=== PATIENT | female | born 1930 | race Caucasian/White ===

== ENCOUNTER 2017-12-23 20:24 | Inpatient (IN) ==
[2017-12-23] MEDS ORDERED: Naloxone 0.4 MG/ML INJ IVP PRN (22:52)
--- NOTE | 2017-12-23 22:58 | Internal Med History&Physical ---
Date of Encounter: 12/23/17 Time of Encounter: 22:56 Internal Medicine - H&P: HPI Chief complaint: Chills rigors fever History of present illness: Ms. Stone is a 86 year old female who presents with acute onset Chills rigors fever. Admitted for UTI therapy Patient lives at home alone and uses a walker at baseline. This past Wednesday while attempting to let her dog out she had mechanical fall when she tried to grab her tried to grab her dog's tail to stop it from rushing out. She sustained trauma to her head and low back that was investigated in the ER with trauma imaging. She was sent home and did well until today when she had a temperature of 100.4 Fahrenheit that was associated with chills and rigors. She presented to the ED at [facility] and was found to have UTI. On review she denies any overt dysuria but complain of chronic urinary frequency but appears unchanged. Routine labs also found to have a mild troponin elevation but without symptoms of chest pain or EKG changes to suggest ischemia. On review, she has a history of DVT and had been on Coumadin until last May where she was switched to Eliquis. At around this time she was also noted to be anemic needing blood transfusion at [facility] approximately every 3 months since May 2017 while under the care of Dr. Shamir Terrazas. She had never been given explanation why she needed blood transfusion or why she is anemic. She was since placed on oral iron which causes stools to be dark. She denies any bright red blood TN. She did not used to have dark stool prior. EKG personally reviewed with rate 80, normal sinus rhythm, left anterior fascicular block CT/CT head/brain wo con IMPRESSION: No acute intracranial abnormality. XR/XR chest 1V portable IMPRESSION: Cardiomegaly with findings suggesting pulmonary edema. XR/XR ribs RT w PA CXR IMPRESSION: 1. No radiographic finding to account for patient's chest wall pain. Please note that nondisplaced rib fractures can be occult. 2. Emphysema. No superimposed acute pulmonary abnormality. XR/XR thoracic spine 2V IMPRESSION: 1. No acute thoracic spine abnormality identified. 2. Moderate degenerative changes throughout the thoracic spine. Past Med Surg Social Fam HX - Past Medical History Medical history: cancer, DVT, diabetes, GERD, hyperlipidemia, hypertension, kidney stones, thyroid disease, other Additional medical history: hiatal hernia Psychiatric history: anxiety, depression - Past Surgical History Surgical History: appendectomy, cataract, hysterectomy, knee replacement, thyroidectomy, other Additional surgical history: bi-lat knee replacement. Exploratory kidney surgery - Social History Smoking Status: Never smoker Smokeless Tobacco Status: No Alcohol use: none Drug use: none Internal Medicine - H&P: Meds Diltiazem CD (24hr) [Cardizem CD] 180 mg PO DAILY 02/26/15 [History] Simvastatin [Zocor] 40 mg PO HS 02/26/15 [History] Furosemide [Lasix] 20 mg PO DAILY 05/02/15 [History] Cholecalciferol (D-3) [Vitamin D] 1,000 unit PO DAILY 05/30/17 [History] Gabapentin [Neurontin] 800 mg PO TID 05/30/17 [History] Levothyroxine [Synthroid] 75 mcg PO DAILY 05/30/17 [History] Pioglitazone [Actos] 30 mg PO 0800 05/31/17 [History] Potassium Chloride 10 meq PO DAILY #30 tab.er.prt 06/01/17 [Rx] Apixaban [Eliquis] 2.5 mg PO BID 06/08/17 [History] Ascorbic Acid [C-500] 500 mg PO DAILY #30 tablet 09/12/17 [Rx] Ferrous Sulfate 325 mg PO DAILY #30 tablet 09/12/17 [Rx] Omeprazole [PriLOSEC] 40 mg PO DAILY 11/28/17 [History] 3 Allergy/AdvReac Type Severity Reaction Status Date / Time clarithromycin [From Biaxin] Allergy Hives Verified 12/23/17 16:56 Iodinated Contrast- Oral and Allergy Hives Verified 12/23/17 16:56 IV Dye [Iodinated Contrast Media - IV Dye] metoclopramide Allergy Difficulty Verified 12/23/17 16:56 Breathing Penicillins Allergy Hives Verified 12/23/17 16:56 phenazopyridine Allergy Rash Verified 12/23/17 16:56 [From Pyridium] Sulfa (Sulfonamide Allergy See Verified 12/23/17 16:56 Antibiotics) Comments sulfamethoxazole Allergy Hives Verified 12/23/17 16:56 [From Bactrim] trimethoprim [From Bactrim] Allergy Hives Verified 12/23/17 16:56 All Systems PM: A 10-system review of systems was performed and is negative for pertinent findings except as documented above in the HPI. Review of systems: ROS 14 point review of systems reviewed as best as possible given presentation. Pertinent positive or negative as per HPI or otherwise reviewed as negative - Constitutional Exam: General - AAO x 3 Psych - Appropriate affect/speech. No agitation Eyes - SATHYA. Eye lids intact. No scleral icterus Neuro - No gross peripheral or central neuro deficits on inspection Heart - Sinus. RRR. S1 and S2 present. No added HS/murmurs appreciated. No elevated JVD appreciated. Lung - Adequate air entry b/l, No crackles/wheezes appreciated GI - Soft, non-tender. No hepatosplenomegaly/ascites. BS+ - No CVA/suprapubic tenderness or palpable bladder distension Skin - Intact. No rash/petechiae/ecchymosis. S1 lower extremity edema venous stasis changes MSK - right-sided discomfort from fall - Assessment and plan (1) UTI (urinary tract infection) Current Visit: No Status: Acute Assessment and plan: Empiric Rocephin IV Blood cultures and urine cultures ordered and drawn at [facility] ED Qualifiers: Urinary tract infection type: acute cystitis Hematuria presence: without hematuria Qualified Code(s): N30.00 - Acute cystitis without hematuria (2) Anemia Current Visit: No Status: Acute Assessment and plan: Unknown etiology We would start with nutritional studies for now Had been treated empirically with by mouth iron supplementation and vitamin C This needs to be further evaluated Qualifiers: Anemia type: other cause Qualified Code(s): D64.89 - Other specified anemias (3) Troponin level elevated Current Visit: No Status: Acute Assessment and plan: No active chest pain suspect type II. We will trend troponin (4) DVT (deep venous thrombosis) Current Visit: No Status: Chronic Assessment and plan: 3 of DVT on chronic anticoagulation. Recently switched from Coumadin to Eliquis since last May. Given anemia and unknown cause of anemia we would hold Eliquis for now - pending anemia evaluation Qualifiers: DVT location: lower extremity Chronicity: unspecified Laterality: unspecified laterality Qualified Code(s): I82.409 - Acute embolism and thrombosis of unspecified deep veins of unspecified lower extremity (5) DM type 2 (diabetes mellitus, type 2) Current Visit: No Status: Acute Assessment and plan: Continue oral medicines Qualifiers: Diabetes mellitus half-way insulin use: without half-way use Qualified Code(s): E11.9 - Type 2 diabetes mellitus without complications - Time Spent With Patient Total time spent is greater than 50% in coordination of care (as documented) at patient's floor/unit and/or counseling patient:
[2017-12-24] MEDS ORDERED: Gabapentin 400 MG CAPSULE PO ONE (00:05)
[2017-12-24] MEDS: Melatonin 3 MG TABLET PO SCH ×2 (00:40→21:43)
[2017-12-24 05:32] LABS: Basophils % 0.3 %; Eosinophils # 0.1 K/mcL (0.0-0.6); Eosinophils % 1.1 %; Hematocrit 21.5 % (35.3-44.9); Hemoglobin 6.3 g/dL (11.5-15.4); Immature Granulocytes % 0.3 % (0-4); Immature Reticulocyte % 23.3 % (11.0-38.0); Lymphocytes # 0.7 K/mcL (0.6-4.6); Lymphocytes % 10.2 %; Mean Corpuscular HGB Conc 29.3 g/dL (31.6-35.5); Mean Corpuscular Hemoglobin 27.6 pg (28.0-33.3); Mean Corpuscular Volume 94.3 fL (83.0-100.0); Mean Platelet Volume 10.1 fL (9.4-12.4); Monocytes % 14.7 %; Neutrophils # 4.8 K/mcL (1.6-8.9); Platelet Count 188 K/mcL (140-400); Red Blood Count 2.28 M/mcL (3.82-4.97); Red Cell Distribution Width 15.4 % (11.5-14.5); Retculocyte # 0.14 M/mcL (0.05-0.10); Segmented Neutrophils % 73.4 %
[2017-12-24 05:51] LABS: % Iron Saturation 4 % (15-50); BUN/Creatinine Ratio 23 (6-26); Blood Urea Nitrogen 18 mg/dL (8-23); Calcium 8.6 mg/dL (8.6-10.3); Carbon Dioxide 24 mEq/L (23-29); Chloride 109 mEq/L (98-107); Ferritin 15 ng/ml (10-120); Glucose 120 mg/dL (70-105); Iron 11 mcg/dL (50-170); Magnesium 2.1 mg/dL (1.6-2.6); Osmolality,Calculated 289 (280-300); Potassium 3.7 mEq/L (3.5-5.1); Sodium 138 mEq/L (136-145); Transferrin 222 mg/dL (203-362); eGFR For African Americans > 60 (> 60); eGFR For Non-African Americans > 60 (> 60)
[2017-12-24] MEDS ORDERED: *HR* Enoxaparin 30 MG/0.3 ML SYRINGE SQ SCH (06:00)
[2017-12-24 06:15] LABS: Vitamin B12 493 pg/mL (250-1100)
[2017-12-24 06:21] LABS: Folate > 22.3 ng/mL (3.0-16.0)
[2017-12-24] MEDS ORDERED: Acetaminophen 325 MG TABLET PO ONE (06:41)
[2017-12-24] MEDS: Diltiazem CD (24hr) 180 MG CAPSULE PO SCH (09:58)
[2017-12-24] MEDS: *HR* Pioglitazone 30 MG TABLET PO SCH (09:58)
[2017-12-24] MEDS: Furosemide 40 MG TABLET PO SCH (09:58)
[2017-12-24] MEDS: Gabapentin 400 MG CAPSULE PO SCH ×3 (09:58→21:43)
[2017-12-24] MEDS: Ascorbic Acid 500 MG TABLET PO SCH (09:58)
[2017-12-24] MEDS: Pantoprazole 40 MG VIAL IVP SCH ×2 (09:59→21:42)
[2017-12-24] MEDS: cefTRIAXone 1,000 MG in Water for inj. (sterile) 20 ML 10 ML IVPB SCH (10:20)
[2017-12-24] MEDS ORDERED: Iron Sucrose Complex 400 MG in 0.9 % Sodium Chloride 250 ML IVPB ONE (12:00)
[2017-12-24] MEDS ORDERED: Diltiazem CD (24hr) 180 MG CAPSULE PO SCH (12:15)
[2017-12-24] MEDS ORDERED: 0.9 % Sodium Chloride 250 ML ONE (13:19)
--- NOTE | 2017-12-24 13:50 | Internal Med Progress Note ---
Date of Encounter: 12/24/17 Time of Encounter: 12:10 - Assessment and plan (1) UTI (urinary tract infection) Current Visit: No Status: Acute Assessment and plan: Cultures pending. Currently on IV Rocephin. Qualifiers: Urinary tract infection type: acute cystitis Hematuria presence: with hematuria Qualified Code(s): N30.01 - Acute cystitis with hematuria (2) Anemia Current Visit: No Status: Suspected Assessment and plan: Most likely due to occult bleeding. Discussed with GI. Will plan for scopes on Wednesday. Clear liquid on Wednesday. Qualifiers: Anemia type: iron deficiency Iron deficiency anemia type: chronic blood loss Qualified Code(s): D50.0 - Iron deficiency anemia secondary to blood loss (chronic) (3) DM type 2 (diabetes mellitus, type 2) Current Visit: No Status: Chronic Assessment and plan: Monitoring blood sugars. Qualifiers: Diabetes mellitus residential insulin use: without terminal gauger use Diabetes mellitus complication status: without complication Qualified Code(s): E11.9 - Type 2 diabetes mellitus without complications (4) Hx of deep venous thrombosis Current Visit: Yes Status: Chronic Assessment and plan: Pt has been on chronic anticoagulation which is currently on hold. GI work up for bleeding. (5) Hypertension Current Visit: No Status: Chronic Assessment and plan: Continue current medications. Qualifiers: Hypertension type: essential hypertension Qualified Code(s): I10 - Essential (primary) hypertension (6) Hypothyroidism Current Visit: No Status: Chronic Assessment and plan: Continue current medications. Qualifiers: Hypothyroidism type: acquired Qualified Code(s): E03.9 - Hypothyroidism, unspecified (7) Demand ischemia Current Visit: Yes Status: Acute Assessment and plan: Troponin elevated but appears to be related to demand. Asymptomatic at this time. - Time Spent With Patient Total time spent is greater than 50% in coordination of care (as documented) at patient's floor/unit and/or counseling patient: - Subjective Interval history: Ms Stone is currently admitted for acute UTI and anemia. She remains moderate to high risk due to potential for worsening clinical status. Ms Stone feels OK. No fever or chills. No cough. Receiving IV iron at this time. Eliquis on hold. Pt has hx of 4 DVTs she tells me. Currently has no new issues since admission. - Constitutional Vitals: Temp Pulse Resp BP Pulse Ox 97.7 F 63 16 123/53 98 12/24/17 13:28 12/24/17 13:28 12/24/17 13:28 12/24/17 13:28 12/24/17 13:28 General appearance: Present: A&O X 3, pleasant, answers questions appropriately - Head Head exam: Present: normocephalic - Eye Eye exam: Present: conjuntiva pink - ENT ENT exam: Present: mucous membranes moist - Respiratory Respiratory exam: Present: CTAB. Absent: rales, rhonchi, wheezes - Cardiovascular Cardiovascular exam: Present: RRR. Absent: tachycardia - GI/Abdominal GI/Abdominal exam: Present: soft. Absent: tenderness - Extremities Exam Extremities exam: Present: warm. Absent: tenderness - Neurological Exam Neurological exam: Present: alert, oriented X3, no focal deficits - Skin Skin exam: Present: dry, warm Internal Medicine: Result - Labs CBC & Chem 7: 12/24/17 05:02 12/24/17 05:02 Labs: Short CBC 12/24/17 Range/Units 05:02 WBC 6.5 (4.3-11.1) K/mcL Hgb 6.3 L (11.5-15.4) g/dL Hct 21.5 L (35.3-44.9) % Plt Count 188 (140-400) K/mcL Neutrophils # 4.8 (1.6-8.9) K/mcL BMP 12/24/17 05:02 Sodium 138 Potassium 3.7 Chloride 109 H Carbon Dioxide 24 BUN 18 Creatinine 0.78 Glucose 120 H Calcium 8.6 Cardiac Enzymes 12/23/17 12/24/17 12/24/17 Range/Units 23:09 05:02 10:48 Troponin I 0.29 H* 0.28 H* 0.21 H* (< 0.04) ng/mL Consult Discharge Plan - Plan Referrals: Will Veliz DO [Primary Care Provider] -
[2017-12-25 05:12] LABS: Basophils % 0.8 %; Eosinophils # 0.2 K/mcL (0.0-0.6); Eosinophils % 3.8 %; Hematocrit 26.2 % (35.3-44.9); Hemoglobin 7.8 g/dL (11.5-15.4); Immature Granulocytes % 0.8 % (0-4); Lymphocytes # 0.9 K/mcL (0.6-4.6); Lymphocytes % 17.5 %; Mean Corpuscular HGB Conc 29.8 g/dL (31.6-35.5); Mean Corpuscular Hemoglobin 27.8 pg (28.0-33.3); Mean Corpuscular Volume 93.2 fL (83.0-100.0); Mean Platelet Volume 10.3 fL (9.4-12.4); Monocytes % 19.7 %; Neutrophils # 2.9 K/mcL (1.6-8.9); Platelet Count 199 K/mcL (140-400); Red Blood Count 2.81 M/mcL (3.82-4.97); Red Cell Distribution Width 16.2 % (11.5-14.5); Segmented Neutrophils % 57.4 %
[2017-12-25 05:35] LABS: Alanine Aminotransferase 7 Units/L (7-52); Albumin 2.9 g/dL (3.5-5.7); Albumin/Globulin Ratio 1.6 (1.1-2.2); Alkaline Phosphatase 51 Units/L (34-104); Aspartate Amino Transferase 11 Units/L (13-39); BUN/Creatinine Ratio 21 (6-26); Bilirubin,Total 0.3 mg/dL (0.3-1.0); Blood Urea Nitrogen 15 mg/dL (8-23); Carbon Dioxide 26 mEq/L (23-29); Chloride 110 mEq/L (98-107); Globulin 1.8 g/dL (2.4-3.5); Glucose 104 mg/dL (70-105); Osmolality,Calculated 287 (280-300); Potassium 3.6 mEq/L (3.5-5.1); Sodium 138 mEq/L (136-145); Total Protein 4.7 g/dL (6.4-8.9); eGFR For African Americans > 60 (> 60); eGFR For Non-African Americans > 60 (> 60)
[2017-12-25 05:56] LABS: Platelet Estimate Normal (Normal); Polychromasia 1+ (Not Present)
[2017-12-25 05:57] LABS: Anisocytosis 1+ (Not Present)
[2017-12-25] MEDS ORDERED: NON-FORMULARY MEDICATION 1 EACH EACH (Pantoprazole Sodium [Protonix] 40 MG) PO SCH (09:00)
[2017-12-25] MEDS: *HR* Pioglitazone 30 MG TABLET PO SCH (11:01)
[2017-12-25] MEDS: Ascorbic Acid 500 MG TABLET PO SCH (11:02)
[2017-12-25] MEDS: Furosemide 40 MG TABLET PO SCH (11:02)
[2017-12-25] MEDS: Gabapentin 400 MG CAPSULE PO SCH ×3 (11:03→21:15)
[2017-12-25] MEDS: cefTRIAXone 1,000 MG in Water for inj. (sterile) 20 ML 10 ML IVPB SCH (11:03)
[2017-12-25] MEDS: Multivit/Ca/Min/Fe/FA 1 TAB TABLET PO SCH (11:03)
[2017-12-25] MEDS: Pantoprazole 40 MG VIAL IVP SCH ×2 (11:04→21:15)
[2017-12-25] MEDS: Diltiazem CD (24hr) 180 MG CAPSULE PO SCH (11:09)
--- NOTE | 2017-12-25 17:58 | Internal Med Progress Note ---
Date of Encounter: 12/25/17 Time of Encounter: 11:45 - Assessment and plan (1) UTI (urinary tract infection) Current Visit: No Status: Acute Assessment and plan: Tolerating IV Rocephin. Awaiting final culture results. Qualifiers: Urinary tract infection type: acute cystitis Hematuria presence: with hematuria Qualified Code(s): N30.01 - Acute cystitis with hematuria (2) Anemia Current Visit: No Status: Suspected Assessment and plan: Most likely due to occult bleeding. Plan is for endoscopy on Wednesday. NPO tomorrow night. Qualifiers: Anemia type: iron deficiency Iron deficiency anemia type: chronic blood loss Qualified Code(s): D50.0 - Iron deficiency anemia secondary to blood loss (chronic) (3) DM type 2 (diabetes mellitus, type 2) Current Visit: No Status: Chronic Assessment and plan: Monitoring blood sugars. Qualifiers: Diabetes mellitus prison insulin use: without exterminator use Diabetes mellitus complication status: without complication Qualified Code(s): E11.9 - Type 2 diabetes mellitus without complications (4) Hx of deep venous thrombosis Current Visit: Yes Status: Chronic Assessment and plan: Pt has been on chronic anticoagulation which is currently on hold. GI work up for bleeding. (5) Hypertension Current Visit: No Status: Chronic Assessment and plan: Continue current medications. Qualifiers: Hypertension type: essential hypertension Qualified Code(s): I10 - Essential (primary) hypertension (6) Hypothyroidism Current Visit: No Status: Chronic Assessment and plan: Continue current medications. Qualifiers: Hypothyroidism type: acquired Qualified Code(s): E03.9 - Hypothyroidism, unspecified (7) Demand ischemia Current Visit: Yes Status: Resolved Assessment and plan: Troponin elevated but appears to be related to demand. Asymptomatic at this time. - Time Spent With Patient Total time spent is greater than 50% in coordination of care (as documented) at patient's floor/unit and/or counseling patient: - Subjective Interval history: Ms Stone is currently admitted for acute UTI and anemia. She remains moderate to high risk due to potential for worsening clinical status. Ms Stone feels OK. She had some leg pain earlier today. No abd pain. No CP or SOB. Ambulates OK. - Constitutional Vitals: Temp Pulse Resp BP Pulse Ox 98.2 F 61 16 117/95 93 12/25/17 15:48 12/25/17 15:48 12/25/17 15:48 12/25/17 15:48 12/25/17 15:48 General appearance: Present: A&O X 3, pleasant, answers questions appropriately - Head Head exam: Present: normocephalic - Eye Eye exam: Present: conjuntiva pink - ENT ENT exam: Present: mucous membranes moist - Respiratory Respiratory exam: Present: CTAB. Absent: rales, rhonchi, wheezes - Cardiovascular Cardiovascular exam: Present: RRR. Absent: tachycardia - GI/Abdominal GI/Abdominal exam: Present: soft. Absent: tenderness - Extremities Exam Extremities exam: Present: warm - Neurological Exam Neurological exam: Present: alert, oriented X3 - Skin Skin exam: Present: dry, warm Internal Medicine: Result - Labs CBC & Chem 7: 12/25/17 04:24 12/25/17 04:24 Labs: Short CBC 12/25/17 Range/Units 04:24 WBC 5.0 (4.3-11.1) K/mcL Hgb 7.8 L D (11.5-15.4) g/dL Hct 26.2 L (35.3-44.9) % Plt Count 199 (140-400) K/mcL Neutrophils # 2.9 (1.6-8.9) K/mcL BMP 12/25/17 04:24 Sodium 138 Potassium 3.6 Chloride 110 H Carbon Dioxide 26 BUN 15 Creatinine 0.72 Glucose 104 Calcium 9.0 Liver Function 12/25/17 Range/Units 04:24 Total Bilirubin 0.3 (0.3-1.0) mg/dL AST 11 L (13-39) Units/L ALT 7 (7-52) Units/L Alkaline Phosphatase 51 (34-104) Units/L Albumin 2.9 L (3.5-5.7) g/dL Consult Discharge Plan - Plan Referrals: Will Veliz DO [Primary Care Provider] -
[2017-12-25] MEDS ORDERED: Methyl Salicylate/Menthol 28 GM TUBE TP PRN (18:01)
[2017-12-25] MEDS: Melatonin 3 MG TABLET PO SCH (21:15)
[2017-12-26] MEDS: Acetaminophen 325 MG TABLET PO PRN ×2 (02:55→20:33)
[2017-12-26 07:55] LABS: Alanine Aminotransferase 8 Units/L (7-52); Albumin 2.8 g/dL (3.5-5.7); Albumin/Globulin Ratio 1.6 (1.1-2.2); Alkaline Phosphatase 50 Units/L (34-104); Aspartate Amino Transferase 11 Units/L (13-39); BUN/Creatinine Ratio 24 (6-26); Bilirubin,Total 0.2 mg/dL (0.3-1.0); Blood Urea Nitrogen 15 mg/dL (8-23); Calcium 8.9 mg/dL (8.6-10.3); Carbon Dioxide 26 mEq/L (23-29); Chloride 111 mEq/L (98-107); Globulin 1.8 g/dL (2.4-3.5); Glucose 94 mg/dL (70-105); Osmolality,Calculated 293 (280-300); Potassium 3.6 mEq/L (3.5-5.1); Sodium 141 mEq/L (136-145); Total Protein 4.6 g/dL (6.4-8.9); eGFR For African Americans > 60 (> 60); eGFR For Non-African Americans > 60 (> 60)
[2017-12-26 08:05] LABS: Hematocrit 24.7 % (35.3-44.9); Hemoglobin 7.5 g/dL (11.5-15.4); Mean Corpuscular HGB Conc 30.4 g/dL (31.6-35.5); Mean Corpuscular Hemoglobin 28.5 pg (28.0-33.3); Mean Corpuscular Volume 93.9 fL (83.0-100.0); Mean Platelet Volume 10.6 fL (9.4-12.4); Platelet Count 228 K/mcL (140-400); Red Blood Count 2.63 M/mcL (3.82-4.97); Red Cell Distribution Width 15.5 % (11.5-14.5)
[2017-12-26] MEDS: Gabapentin 400 MG CAPSULE PO SCH ×3 (08:57→20:14)
[2017-12-26] MEDS: Ascorbic Acid 500 MG TABLET PO SCH (08:57)
[2017-12-26] MEDS: Diltiazem CD (24hr) 180 MG CAPSULE PO SCH (08:57)
[2017-12-26] MEDS: Furosemide 40 MG TABLET PO SCH (08:57)
[2017-12-26] MEDS: Multivit/Ca/Min/Fe/FA 1 TAB TABLET PO SCH (08:57)
[2017-12-26] MEDS: *HR* Pioglitazone 30 MG TABLET PO SCH (08:57)
[2017-12-26] MEDS: Pantoprazole 40 MG VIAL IVP SCH ×3 (08:58→20:15)
[2017-12-26] MEDS: cefTRIAXone 1,000 MG in Water for inj. (sterile) 20 ML 10 ML IVPB SCH (09:00)
--- NOTE | 2017-12-26 10:47 | Internal Med Progress Note ---
Date of Encounter: 12/26/17 Time of Encounter: 10:45 - Assessment and plan (1) UTI (urinary tract infection) Current Visit: No Status: Acute Assessment and plan: Culture shows mixed bacteria. Currently on IV Rocephin and tolerating. Qualifiers: Urinary tract infection type: acute cystitis Hematuria presence: with hematuria Qualified Code(s): N30.01 - Acute cystitis with hematuria (2) Anemia Current Visit: No Status: Suspected Assessment and plan: Most likely due to occult bleeding. Will transfuse another unit PRBCs today and give IV iron agian. Plan for endoscopy tomorrow. Prep today. Qualifiers: Anemia type: iron deficiency Iron deficiency anemia type: chronic blood loss Qualified Code(s): D50.0 - Iron deficiency anemia secondary to blood loss (chronic) (3) DM type 2 (diabetes mellitus, type 2) Current Visit: No Status: Chronic Assessment and plan: Monitoring blood sugars. Qualifiers: Diabetes mellitus jail insulin use: without jail use Diabetes mellitus complication status: without complication Qualified Code(s): E11.9 - Type 2 diabetes mellitus without complications (4) Hx of deep venous thrombosis Current Visit: Yes Status: Chronic Assessment and plan: Pt has been on chronic anticoagulation which is currently on hold. GI work up for bleeding. She has had 4 prior DVTs - if cannot be on anticoagulation will need consider filter. (5) Hypertension Current Visit: No Status: Chronic Assessment and plan: Continue current medications. Controlled. Qualifiers: Hypertension type: essential hypertension Qualified Code(s): I10 - Essential (primary) hypertension (6) Hypothyroidism Current Visit: No Status: Chronic Assessment and plan: Continue current medications. Qualifiers: Hypothyroidism type: acquired Qualified Code(s): E03.9 - Hypothyroidism, unspecified (7) Demand ischemia Current Visit: Yes Status: Resolved Assessment and plan: Troponin elevated but appears to be related to demand. Asymptomatic at this time. - Time Spent With Patient Total time spent is greater than 50% in coordination of care (as documented) at patient's floor/unit and/or counseling patient: - Subjective Interval history: Ms Stone is currently admitted for acute UTI and anemia. She remains moderate to high risk due to potential for worsening clinical status. Ms Stone is tired today. She has been urinating a lot at night and is tired because she has been up a lot. No fever or chills. No bleeding noticed. H/H about the same. No CP or SOB. - Constitutional Vitals: Temp Pulse Resp BP Pulse Ox 97.5 F L 63 18 152/70 95 12/26/17 07:56 12/26/17 07:56 12/26/17 07:56 12/26/17 07:56 12/26/17 07:56 General appearance: Present: A&O X 3, pleasant, answers questions appropriately - Head Head exam: Present: normocephalic - Eye Eye exam: Present: conjuntiva pink - ENT ENT exam: Present: mucous membranes moist - Respiratory Respiratory exam: Present: CTAB. Absent: rales, rhonchi, wheezes - Cardiovascular Cardiovascular exam: Present: RRR. Absent: tachycardia - GI/Abdominal GI/Abdominal exam: Present: soft. Absent: tenderness - Extremities Exam Extremities exam: Present: warm. Absent: tenderness - Neurological Exam Neurological exam: Present: alert, oriented X3 - Skin Skin exam: Present: dry, warm Internal Medicine: Result - Labs CBC & Chem 7: 12/26/17 06:44 12/26/17 06:44 Labs: Short CBC 12/26/17 Range/Units 06:44 WBC 4.3 (4.3-11.1) K/mcL Hgb 7.5 L (11.5-15.4) g/dL Hct 24.7 L (35.3-44.9) % Plt Count 228 (140-400) K/mcL BMP 12/26/17 06:44 Sodium 141 Potassium 3.6 Chloride 111 H Carbon Dioxide 26 BUN 15 Creatinine 0.63 Glucose 94 Calcium 8.9 Liver Function 12/26/17 Range/Units 06:44 Total Bilirubin 0.2 L (0.3-1.0) mg/dL AST 11 L (13-39) Units/L ALT 8 (7-52) Units/L Alkaline Phosphatase 50 (34-104) Units/L Albumin 2.8 L (3.5-5.7) g/dL Consult Discharge Plan - Plan Referrals: Will Veliz DO [Primary Care Provider] -
[2017-12-26] MEDS: Iron Sucrose Complex 200 MG in 0.9 % Sodium Chloride 100 ML IVPB SCH (13:03)
[2017-12-26] MEDS ORDERED: 0.9 % Sodium Chloride 500 ML ONE (14:58)
[2017-12-26] MEDS ORDERED: SODIUM CHLORIDE/NAHCO3/KCL/PEG 4,000 ML SOLN.RECON PO ONE (16:00)
[2017-12-27] MEDS: Melatonin 3 MG TABLET PO SCH ×2 (00:23→20:37)
[2017-12-27] MEDS ORDERED: Capsaicin 0.025% 60 GM TUBE TP PRN (03:09)
[2017-12-27] MEDS ORDERED: Lidocaine 4% CREAM (LMX) 5 GM TP PRN (03:11)
[2017-12-27] MEDS ORDERED: *HR* Nalbuphine 10 MG/ML AMPUL IVP PRN (04:32)
[2017-12-27 05:14] LABS: Hematocrit 31.2 % (35.3-44.9); Mean Corpuscular HGB Conc 30.1 g/dL (31.6-35.5); Mean Corpuscular Hemoglobin 28.7 pg (28.0-33.3); Mean Corpuscular Volume 95.1 fL (83.0-100.0); Mean Platelet Volume 9.9 fL (9.4-12.4); Platelet Count 250 K/mcL (140-400); Red Blood Count 3.28 M/mcL (3.82-4.97); Red Cell Distribution Width 15.2 % (11.5-14.5)
[2017-12-27 05:17] LABS: Hemoglobin 9.4 g/dL (11.5-15.4)
[2017-12-27 05:37] LABS: BUN/Creatinine Ratio 15 (6-26); Blood Urea Nitrogen 7 mg/dL (8-23); Calcium 8.9 mg/dL (8.6-10.3); Carbon Dioxide 24 mEq/L (23-29); Chloride 110 mEq/L (98-107); Glucose 99 mg/dL (70-105); Osmolality,Calculated 288 (280-300); Potassium 3.3 mEq/L (3.5-5.1); Sodium 140 mEq/L (136-145); eGFR For African Americans > 60 (> 60); eGFR For Non-African Americans > 60 (> 60)
[2017-12-27] MEDS: *HR* Pioglitazone 30 MG TABLET PO SCH (09:40)
[2017-12-27] MEDS: Furosemide 40 MG TABLET PO SCH (09:52)
[2017-12-27] MEDS: Diltiazem CD (24hr) 180 MG CAPSULE PO SCH (09:52)
[2017-12-27] MEDS: Multivit/Ca/Min/Fe/FA 1 TAB TABLET PO SCH (09:56)
[2017-12-27] MEDS: Gabapentin 400 MG CAPSULE PO SCH ×3 (09:56→20:37)
[2017-12-27] MEDS ORDERED: Acetaminophen 325 MG TABLET PO PRN (09:57)
[2017-12-27] MEDS: Ascorbic Acid 500 MG TABLET PO SCH (09:57)
[2017-12-27] MEDS: Pantoprazole 40 MG VIAL IVP SCH ×2 (09:57→20:37)
[2017-12-27] MEDS: cefTRIAXone 1,000 MG in Water for inj. (sterile) 20 ML 10 ML IVPB SCH (09:57)
[2017-12-27] MEDS: Iron Sucrose Complex 200 MG in 0.9 % Sodium Chloride 100 ML IVPB SCH (09:58)
--- NOTE | 2017-12-27 11:41 | Internal Med Progress Note ---
<Ludwin Ace - Last Filed: 12/27/17 11:39> Date of Encounter: 12/27/17 Time of Encounter: 11:39 - Assessment and plan (1) UTI (urinary tract infection) Current Visit: No Status: Acute Assessment and plan: Culture shows mixed bacteria, sample not suitable for culture. She reports dysuria on presentation but this is resolved Currently on IV Rocephin, day 4 and tolerating. Since patient completed a three-day course we will discontinue Rocephin Qualifiers: Urinary tract infection type: acute cystitis Hematuria presence: with hematuria Qualified Code(s): N30.01 - Acute cystitis with hematuria (2) Anemia Current Visit: No Status: Suspected Assessment and plan: Iron deficiency, Most likely due to occult bleeding. Status post transfusion of 2 units, hemoglobin increased today to 9.4 Continue IV iron infusions for a total of 2 doses Continue monitor hemoglobin and transfuse as necessary Plan for endoscopy today with GI. Completed Prep last night. Qualifiers: Anemia type: iron deficiency Iron deficiency anemia type: chronic blood loss Qualified Code(s): D50.0 - Iron deficiency anemia secondary to blood loss (chronic) (3) Hx of deep venous thrombosis Current Visit: Yes Status: Chronic Assessment and plan: Pt has been on chronic anticoagulation which is currently on hold due to concerns for bleeding. GI work up for bleeding as above. Patient has new onset left lower extremity pain that started last night, also noted is increased left lower extremity leg circumference compared to right Given that she has been off her anticoagulation and reports pain will repeat left lower extremity Doppler She has had 4 prior DVTs - if cannot be on anticoagulation will need consider filter. (4) Hypertension Current Visit: No Status: Chronic Assessment and plan: Continue current medications. Slightly elevated today, likely due to pain and patient not receiving her medications due to being nothing by mouth Qualifiers: Hypertension type: essential hypertension Qualified Code(s): I10 - Essential (primary) hypertension (5) Hypothyroidism Current Visit: No Status: Chronic Assessment and plan: Continue current medications. Qualifiers: Hypothyroidism type: acquired Qualified Code(s): E03.9 - Hypothyroidism, unspecified (6) DM type 2 (diabetes mellitus, type 2) Current Visit: No Status: Chronic Assessment and plan: Blood sugars have been under good control, continue Actos Qualifiers: Diabetes mellitus fdc insulin use: without buttermaker continuous churn use Diabetes mellitus complication status: without complication Qualified Code(s): E11.9 - Type 2 diabetes mellitus without complications (7) Demand ischemia Current Visit: Yes Status: Resolved Assessment and plan: Troponin elevated but appears to be related to demand. Patient has remained asymptomatic. Continue monitor for chest pain - Time Spent With Patient Total time spent is greater than 50% in coordination of care (as documented) at patient's floor/unit and/or counseling patient: - Subjective Interval history: Patient seen and examined at bedside. She reports left lower leg pain. She states this started last night and his severe. She reports his pain is in the back of her leg. Patient reports frequent bowel movements overnight while being prepped for colonoscopy today. She reports that her bowel movements are now clear, denies any blood in her stool. Patient denies any other evidence of active bleeding. - Constitutional Vitals: Temp Pulse Resp BP Pulse Ox 98.2 F 75 18 150/67 95 12/27/17 07:29 12/27/17 07:29 12/27/17 07:29 12/27/17 07:29 12/27/17 07:29 General appearance: Present: A&O X 3, pleasant, answers questions appropriately - Respiratory Respiratory exam: Present: CTAB. Absent: rales, rhonchi, wheezes - Cardiovascular Cardiovascular exam: Present: RRR. Absent: irregular rhythm, systolic murmur, tachycardia - GI/Abdominal GI/Abdominal exam: Present: soft. Absent: distended, tenderness - Extremities Exam Additional comments: Tenderness to palpation of left calf. Left calf diameter slightly greater than right calf via visual inspection - Neurological Exam Neurological exam: Present: alert, oriented X3, no focal deficits Internal Medicine: Result - Labs CBC & Chem 7: 12/27/17 04:56 12/27/17 04:56 Labs: Short CBC 12/27/17 Range/Units 04:56 WBC 4.5 (4.3-11.1) K/mcL Hgb 9.4 L D (11.5-15.4) g/dL Hct 31.2 L (35.3-44.9) % Plt Count 250 (140-400) K/mcL BMP 12/27/17 04:56 Sodium 140 Potassium 3.3 L Chloride 110 H Carbon Dioxide 24 BUN 7 L Creatinine 0.48 L Glucose 99 Calcium 8.9 Consult Discharge Plan - Plan Referrals: Stiltner,Will D, DO [Primary Care Provider] - <Migue Enriquez - Last Filed: 12/27/17 18:25> Date of Encounter: 12/27/17 - Assessment and plan (1) Hypertension Current Visit: No Status: Chronic Qualifiers: Hypertension type: essential hypertension Qualified Code(s): I10 - Essential (primary) hypertension (2) Hypothyroidism Current Visit: No Status: Chronic Qualifiers: Hypothyroidism type: acquired Qualified Code(s): E03.9 - Hypothyroidism, unspecified (3) Anemia Current Visit: No Status: Suspected Qualifiers: Anemia type: iron deficiency Iron deficiency anemia type: chronic blood loss Qualified Code(s): D50.0 - Iron deficiency anemia secondary to blood loss (chronic) (4) DM type 2 (diabetes mellitus, type 2) Current Visit: No Status: Chronic Qualifiers: Diabetes mellitus fdc insulin use: without buttermaker continuous churn use Diabetes mellitus complication status: without complication Qualified Code(s): E11.9 - Type 2 diabetes mellitus without complications (5) UTI (urinary tract infection) Current Visit: No Status: Acute Qualifiers: Urinary tract infection type: acute cystitis Hematuria presence: with hematuria Qualified Code(s): N30.01 - Acute cystitis with hematuria (6) Hx of deep venous thrombosis Current Visit: Yes Status: Chronic (7) Demand ischemia Current Visit: Yes Status: Resolved - Time Spent With Patient Total time spent is greater than 50% in coordination of care (as documented) at patient's floor/unit and/or counseling patient: - Constitutional Vitals: Temp Pulse Resp BP Pulse Ox 99.5 F 82 14 178/94 95 12/27/17 13:49 12/27/17 13:49 12/27/17 13:49 12/27/17 13:49 12/27/17 13:49 Internal Medicine: Result - Labs CBC & Chem 7: 12/27/17 04:56 12/27/17 04:56 Labs: Short CBC 12/27/17 Range/Units 04:56 WBC 4.5 (4.3-11.1) K/mcL Hgb 9.4 L D (11.5-15.4) g/dL Hct 31.2 L (35.3-44.9) % Plt Count 250 (140-400) K/mcL BMP 12/27/17 04:56 Sodium 140 Potassium 3.3 L Chloride 110 H Carbon Dioxide 24 BUN 7 L Creatinine 0.48 L Glucose 99 Calcium 8.9 - Attending Attestation I examined this patient and my medical decision-making was reviewed with the Resident Physician on 12/27/17. I agree with the documented findings, disposition and treatment plan as described except to the extent set forth below. Ms Stone is currently admitted for UTI and anemia. She remains moderate to high risk due to potential for worsening clinical status. Ms Stone is going to have endoscopy today. No fever or chills. No CP or SOB. Had some confusion after receiving IV pain meds but better now. Exam alert Comfortable Mucus membranes dry Heart not tachy No wheeze Abd soft I/P 1. UTI - completed abx 2. Anemia Further diagnoses and plan as above.
--- NOTE | 2017-12-27 12:14 | Anesthesia Evaluation PreOp ---
Date of Encounter: 12/27/17 Time of Encounter: 13:56 - Past History Planned Operation: EGD/colonoscopy Cardiac History: NC (? elevated troponins this admission (peak 0.29) likely demand ischemia), HTN, Hyperlipidemia, Other (hx DVT currently on Eliquis) Pulmonary History: COPD (emphysema per recent CXR) SIDEHAND History: Other (anxiety, depression) Other Medical History: Renal (stones), Bleeding (GI bleed; since starting anti- coagulation for DVT May 2017, patient has required blood transfusions ~ every 3 months; hgb 6.3 upon admission and is s/p 2 U PRBC's since admission), Diabetes Type II (oral medications only), Thyroid (hx thyroid ca), GERD Anesthesia History: No Prior Anesthetic Complications Alcohol Use: none Drug use: none Medications and Allergies Cholecalciferol (D-3) [Vitamin D] 1,000 unit PO DAILY 05/30/17 [History] Gabapentin [Neurontin] 800 mg PO TID 05/30/17 [History] Levothyroxine [Synthroid] 75 mcg PO DAILY 05/30/17 [History] Pioglitazone [Actos] 30 mg PO 0800 05/31/17 [History] Apixaban [Eliquis] 2.5 mg PO BID 06/08/17 [History] Ascorbic Acid [C-500] 500 mg PO DAILY #30 tablet 09/12/17 [Rx] Ferrous Sulfate 325 mg PO DAILY #30 tablet 09/12/17 [Rx] Melatonin/Pyridoxine HCl (B6) [Melatonin 5 mg Tablet] 10 mg PO HS PRN 12/23/17 [ History] Diltiazem CD (24hr) [Cardizem CD] 180 mg PO DAILY 12/24/17 [History] Furosemide [Lasix] 40 mg PO DAILY 12/24/17 [History] Multivit-Min/Iron/Folic/Lutein [Centrum Silver Women Tablet] 1 tab PO DAILY 08/12 [History] Non-Formulary Medication 1 - 2 pump TP AD 12/24/17 [History] Pantoprazole Sodium [Protonix] 40 mg PO DAILY 12/24/17 [History] Potassium Chloride [K-Tab ER] 20 meq PO DAILY 12/24/17 [History] Vit C/E/Zn/Coppr/Lutein/Zeaxan [Preservision Areds 2 Softgel] 1 cap PO DAILY 08/12 [History] 3 Allergy/AdvReac Type Severity Reaction Status Date / Time clarithromycin [From Biaxin] Allergy Hives Verified 12/24/17 09:51 Iodinated Contrast- Oral and Allergy Hives Verified 12/24/17 09:51 IV Dye [Iodinated Contrast Media - IV Dye] metoclopramide Allergy Difficulty Verified 12/24/17 09:51 Breathing Penicillins Allergy Hives Verified 12/24/17 09:51 phenazopyridine Allergy Rash Verified 12/24/17 09:51 [From Pyridium] Sulfa (Sulfonamide Allergy Hives Verified 12/24/17 09:51 Antibiotics) sulfamethoxazole Allergy Hives Verified 12/24/17 09:51 [From Bactrim] trimethoprim [From Bactrim] Allergy Hives Verified 12/24/17 09:51 - Meds/Allergy Pre-op Review Medications Reviewed: Yes Allergies Reviewed: Yes Beta Blockers on Current Med List: No Anesthesia Results - Labs 12/27/17 04:56 12/27/17 04:56 - Imaging EKG: report reviewed, image reviewed (SINUS RHYTHM LEFT ANTERIOR FASCICULAR BLOCK) Additional studies: TTE: Indications: Coronary artery disease Impressions: Sinus bradycardia, HR 40's. LVEF 60%. Normal left ventricular size and systolic function. There is evidence of mild diastolic dysfunction of the left ventricle. Mildly dilated RV with normal function. Mild aortic regurgitation. Moderate mitral regurgitation. Mild tricuspid regurgitation. Estimated RVSP was 44 mmHg. Mild pulmonary hypertension. The IVC is not dilated. 2015 Holter monitor: Impression: 1. Baseline rhythm normal sinus. 2. Occasional PVCs. 3. Occasional PACs. 4. No symptoms noted. Anesthesia Exam Last Vital Signs Temp 98.2 F 12/27/17 07:29 Pulse 75 12/27/17 07:29 Resp 18 12/27/17 07:29 BP 150/67 12/27/17 07:29 Pulse Ox 95 12/27/17 07:29 Weight: 82.5 kg - HEENT Pupil (Motor): Pupils equal, EOMI Mallampati: III Teeth: Edentulous Oral Opening: Greater than 3 - SIDEHAND LOC: Oriented - Cardiac Rhythm: Regular Murmur: None - Pulmonary Breath Sounds: bilateral Clear Respiratory Effort: Symmetrical Anesthesia Assess/Plan ASA Score: 4 Modified Bruce Scale for Level of Consciousness: Cooperative, oriented, and tranquil Anesthetic Plan: MAC Monitoring Plan: Standard Monitors Recovery Plan: PACU
[2017-12-27] MEDS ORDERED: *HR* Propofol 200 MG/20 ML VIAL IVP ONE ×6 (12:42→14:28)
[2017-12-27] MEDS ORDERED: *HR* EPINEPHrine 1 MG/10 ML SYRINGE INTRATRACH ONE (14:38)
--- NOTE | 2017-12-27 15:04 | Gastroenterology Consult Note ---
<Ludwin Shane - Last Filed: 12/27/17 15:01> Date of Encounter: 12/27/17 Time of Encounter: 11:15 - Assessment and plan (1) Anemia Current Visit: No Status: Suspected Assessment and plan: Hgb on admission 6.3 and today Hgb 9.4. Iron level 11 and ferritin 15 on 12/24. Continue to monitor CBC and transfuse PRBC as needed. Plan for EGD and colonoscopy today. Keep NPO for now. If EGD and colonoscopy negative, consider capsule endoscopy as outpatient. Qualifiers: Anemia type: iron deficiency Iron deficiency anemia type: chronic blood loss Qualified Code(s): D50.0 - Iron deficiency anemia secondary to blood loss (chronic) (2) UTI (urinary tract infection) Current Visit: No Status: Acute Qualifiers: Urinary tract infection type: acute cystitis Hematuria presence: with hematuria Qualified Code(s): N30.01 - Acute cystitis with hematuria (3) Hx of deep venous thrombosis Current Visit: Yes Status: Chronic - Time Spent With Patient Total time spent is greater than 50% in coordination of care (as documented) at patient's floor/unit and/or counseling patient: GI History of Present Illness - Data of Consult Patient: new to practice Consult date: 12/27/17 Requesting Physician: Migue Enriquez DO - Consult Narrative Reason for consult: Anemia History of present illness: Ms. Stone is a 86 year old female with PMHx of DVT (had been on Coumadin until last May where she was switched to Eliquis), DM, GERD, HLD, HTN, kidney stones, who presented to the ED with acute onset of chills, rigors, and fevers and was admitted for UTI therapy. While letting her og out she had mechanical fall when she tried to grab her tried to grab her dog's tail to stop it from rushing out. She sustained trauma to her head and low back that was investigated in the ER with trauma imaging. She was sent home and did well until today when she had a temperature of 100.4 Fahrenheit that was associated with chills and rigors. She presented to the ED at [facility] and was found to have UTI. At around this time she was also noted to be anemic needing blood transfusion at [facility] approximately every 3 months since May 2017 while under the care of Dr. Shamir Terrazas. She had never been given explanation why she needed blood transfusion or why she is anemic. She was since placed on oral iron which causes stools to be dark. She denies any bright red blood OK. We were consulted to evaluate her anemia. Hgb on admission 6.3 and today Hgb 9.4. Iron level 11 and ferritin 15 on 12/24. Pt was prepped for colonoscopy last night. Procedures: EGD 06/19/2015 Dr. Dai: Large hiatal hernia, salmon-colored mucosa suspicious for Fountain's, and few gastric polyps. No pathology to review. NSAIDs: None Anticoagulation: Eliquis Past Med Surg Social Fam HX - Past Medical History Medical history: cancer, DVT, diabetes, GERD, hyperlipidemia, hypertension, kidney stones, thyroid disease, other Additional medical history: hiatal hernia Psychiatric history: anxiety, depression - Past Surgical History Surgical History: appendectomy, cataract, hysterectomy, knee replacement, thyroidectomy, other Additional surgical history: bi-lat knee replacement. Exploratory kidney surgery - Social History Smoking Status: Never smoker Smokeless Tobacco Status: No Alcohol use: none Drug use: none - Gastrointestinal Gastrointestinal: Present: as per HPI - Constitutional Constitutional: as per HPI - EENT Eyes: as per HPI Ears: Present: as per HPI Nose, mouth and throat: Present: as per HPI - Cardiovascular Cardiovascular ROS: Present: as per HPI - Respiratory Respiratory IM: Present: as per HPI - Genitourinary Genitourinary: Absent: change in color, Urinary frequency - Neurological ROS Neurological GI: Present: as per HPI - Hematologic/Lymphatic Hematologic/Lymphatic pediatric: Present: as per HPI - Musculoskeletal Musculoskeletal ROS GI: Present: as per HPI - Integumentary Integumentary GI: Present: as per HPI - Psychiatric ROS Psychiatric GI: Present: as per HPI - Endocrine Endocrine IM: Present: as per HPI - Constitutional Vitals: Temp Pulse Resp BP Pulse Ox 99.5 F 82 14 178/94 95 12/27/17 13:49 12/27/17 13:49 12/27/17 13:49 12/27/17 13:49 12/27/17 13:49 General appearance: Present: cooperative, A&O X 3, no acute distress, answers questions appropriately - Head Head exam: Present: atraumatic, normocephalic - Eye Eye exam: Present: normal appearance, sclera anicteric - ENT ENT exam: Present: mucous membranes dry - Neck Neck exam general surgery: Present: normal inspection, trachea midline - Respiratory Respiratory exam: Present: decreased breath sounds, CTAB. Absent: rales, rhonchi - Cardiovascular Cardiovascular exam: Present: RRR, +S1, +S2 - GI/Abdominal GI/Abdominal exam: Present: soft, no peritoneal signs. Absent: distended, firm , guarding, tenderness - Rectal Rectal exam: Present: deferred - Extremities Exam Extremities exam: Present: warm - Neurological Exam Neurological exam: Present: no focal deficits - Psychiatric Psychiatric exam: Present: normal affect, normal mood - Skin Skin exam: Present: dry, intact, normal color, warm Results - Labs CBC & Chem 7: 12/27/17 04:56 12/27/17 04:56 Labs: Last Result Calcium 8.9 mg/dL (8.6-10.3) 12/27/17 04:56 Iron 11 mcg/dL (50-170) L 12/24/17 05:02 % Saturation 4 % (15-50) L 12/24/17 05:02 Transferrin 222 mg/dL (203-362) 12/24/17 05:02 Ferritin 15 ng/ml (10-120) 12/24/17 05:02 Troponin I 0.21 ng/mL (< 0.04) H* 12/24/17 10:48 Vitamin B12 493 pg/mL (250-1100) 12/24/17 05:02 Folate > 22.3 ng/mL (3.0-16.0) H 12/24/17 05:02 Entire Visit Hgb 9.4 g/dL (11.5-15.4) L D 12/27/17 04:56 Hct 31.2 % (35.3-44.9) L 12/27/17 04:56 Ferritin 15 ng/ml (10-120) 12/24/17 05:02 Total Bilirubin 0.2 mg/dL (0.3-1.0) L 12/26/17 06:44 AST 11 Units/L (13-39) L 12/26/17 06:44 ALT 8 Units/L (7-52) 12/26/17 06:44 Folate > 22.3 ng/mL (3.0-16.0) H 12/24/17 05:02 Consult Discharge Plan - Plan Referrals: Will Veliz DO [Primary Care Provider] - <Dionicio Proctor - Last Filed: 12/27/17 18:09> Date of Encounter: 12/27/17 Time of Encounter: 13:45 - Time Spent With Patient Total time spent is greater than 50% in coordination of care (as documented) at patient's floor/unit and/or counseling patient: GI History of Present Illness - Data of Consult Requesting Physician: Migue Enriquez DO - Consult Narrative History of present illness: Ms. Stone is a 86 year old female - Constitutional Vitals: Temp Pulse Resp BP Pulse Ox 99.5 F 82 14 178/94 95 12/27/17 13:49 12/27/17 13:49 12/27/17 13:49 12/27/17 13:49 12/27/17 13:49 Results - Labs CBC & Chem 7: 12/27/17 04:56 12/27/17 04:56 Labs: Last Result Calcium 8.9 mg/dL (8.6-10.3) 12/27/17 04:56 Iron 11 mcg/dL (50-170) L 12/24/17 05:02 % Saturation 4 % (15-50) L 12/24/17 05:02 Transferrin 222 mg/dL (203-362) 12/24/17 05:02 Ferritin 15 ng/ml (10-120) 12/24/17 05:02 Troponin I 0.21 ng/mL (< 0.04) H* 12/24/17 10:48 Vitamin B12 493 pg/mL (250-1100) 12/24/17 05:02 Folate > 22.3 ng/mL (3.0-16.0) H 12/24/17 05:02 Entire Visit Hgb 9.4 g/dL (11.5-15.4) L D 12/27/17 04:56 Hct 31.2 % (35.3-44.9) L 12/27/17 04:56 Ferritin 15 ng/ml (10-120) 12/24/17 05:02 Total Bilirubin 0.2 mg/dL (0.3-1.0) L 12/26/17 06:44 AST 11 Units/L (13-39) L 12/26/17 06:44 ALT 8 Units/L (7-52) 12/26/17 06:44 Folate > 22.3 ng/mL (3.0-16.0) H 12/24/17 05:02 - Attending Attestation I have personally performed a face to face evaluation on this patient. I have reviewed and agree with the care plan. History and Exam by me shows: Pt seen patient with anemia but no overt GI bleeding. Rec: EGD and colon today
--- NOTE | 2017-12-27 15:46 | Anesthesia Evaluation Post Op ---
Date of Encounter: 12/27/17 Time of Encounter: 15:45 - Vital Signs Vital Signs: 128/52, HR 65, RR 14, SpO2 96% - Lungs Lungs: Clear Ascult./Percussion - Airway Airway: Non-obstructed - Cardiovascular Regular Rate - Mental Status Mental Status: Alert & Oriented, Answers Appropriately - Pain Pain Scale: 0 Pain Scale used: Numeric (1 - 10) - Nausea Vomiting Nausea Vomiting: Not Present - Hydration Hydration: NPO, Has not voided - Discharge PostOp Status: Transfer Patient to floor
[2017-12-27] MEDS ORDERED: Polyethylene Glycol 3350 255 GM POWDER PO ONE (17:00)
[2017-12-27] MEDS: *HR* OxyCODONE Immed Rel 5 MG TABLET PO PRN (18:31)
[2017-12-28] MEDS: *HR* OxyCODONE Immed Rel 5 MG TABLET PO PRN ×4 (03:11→20:41)
[2017-12-28 05:26] LABS: Basophils # 0.1 K/mcL (0.0-0.2); Eosinophils # 0.4 K/mcL (0.0-0.6); Eosinophils % 8.2 %; Hematocrit 30.7 % (35.3-44.9); Hemoglobin 9.3 g/dL (11.5-15.4); Lymphocytes # 0.9 K/mcL (0.6-4.6); Lymphocytes % 17.9 %; Mean Corpuscular HGB Conc 30.3 g/dL (31.6-35.5); Mean Corpuscular Hemoglobin 27.9 pg (28.0-33.3); Mean Corpuscular Volume 92.2 fL (83.0-100.0); Mean Platelet Volume 9.6 fL (9.4-12.4); Monocytes # 0.8 K/mcL (0.0-1.3); Monocytes % 15.6 %; Platelet Count 261 K/mcL (140-400); Red Blood Count 3.33 M/mcL (3.82-4.97); Red Cell Distribution Width 15.4 % (11.5-14.5); Segmented Neutrophils % 56.3 %
[2017-12-28 05:45] LABS: BUN/Creatinine Ratio 10 (6-26); Blood Urea Nitrogen 6 mg/dL (8-23); Calcium 9.2 mg/dL (8.6-10.3); Carbon Dioxide 25 mEq/L (23-29); Chloride 108 mEq/L (98-107); Glucose 93 mg/dL (70-105); Osmolality,Calculated 285 (280-300); Potassium 3.2 mEq/L (3.5-5.1); Sodium 139 mEq/L (136-145); eGFR For African Americans > 60 (> 60); eGFR For Non-African Americans > 60 (> 60)
[2017-12-28] MEDS: *HR* Pioglitazone 30 MG TABLET PO SCH (09:20)
[2017-12-28] MEDS: Furosemide 40 MG TABLET PO SCH (09:33)
[2017-12-28] MEDS: Gabapentin 400 MG CAPSULE PO SCH ×3 (09:33→20:41)
[2017-12-28] MEDS: Ascorbic Acid 500 MG TABLET PO SCH (09:33)
[2017-12-28] MEDS: Diltiazem CD (24hr) 180 MG CAPSULE PO SCH (09:33)
[2017-12-28] MEDS: Multivit/Ca/Min/Fe/FA 1 TAB TABLET PO SCH (09:33)
[2017-12-28] MEDS: Pantoprazole 40 MG VIAL IVP SCH (09:34)
--- NOTE | 2017-12-28 09:48 | Internal Med Progress Note ---
<Ludwin Ace - Last Filed: 12/28/17 09:45> Date of Encounter: 12/28/17 Time of Encounter: 09:45 - Assessment and plan (1) UTI (urinary tract infection) Current Visit: No Status: Acute Assessment and plan: Culture shows mixed bacteria, sample not suitable for culture. She reports dysuria on presentation but this is resolved Completed 4 days of Rocephin Qualifiers: Urinary tract infection type: acute cystitis Hematuria presence: with hematuria Qualified Code(s): N30.01 - Acute cystitis with hematuria (2) Anemia Current Visit: No Status: Suspected Assessment and plan: Iron deficiency, Most likely due to occult bleeding of duodenal polyp. Status post transfusion of 2 units this hospitalization, hemoglobin stable today at 9.3 Completed IV iron infusions x2 doses Continue monitor hemoglobin and transfuse as necessary Plan for repeat endoscopy today with GI. Completed Prep last night. Qualifiers: Anemia type: iron deficiency Iron deficiency anemia type: chronic blood loss Qualified Code(s): D50.0 - Iron deficiency anemia secondary to blood loss (chronic) (3) Hx of deep venous thrombosis Current Visit: Yes Status: Chronic Assessment and plan: Pt has been on chronic anticoagulation which is currently on hold due to concerns for bleeding. GI work up for bleeding as above. Repeat left lower extremity ultrasound was preliminarily negative for DVT, final read pending (4) Demand ischemia Current Visit: Yes Status: Resolved Assessment and plan: Troponin elevated but appears to be related to demand. Patient has remained asymptomatic. Continue monitor for chest pain (5) Hypertension Current Visit: No Status: Chronic Assessment and plan: Continue current medications. Blood pressure under good control today. Qualifiers: Hypertension type: essential hypertension Qualified Code(s): I10 - Essential (primary) hypertension (6) Hypothyroidism Current Visit: No Status: Chronic Assessment and plan: Continue current medications. Qualifiers: Hypothyroidism type: acquired Qualified Code(s): E03.9 - Hypothyroidism, unspecified (7) DM type 2 (diabetes mellitus, type 2) Current Visit: No Status: Chronic Assessment and plan: Blood sugars have been under good control, continue Actos Qualifiers: Diabetes mellitus longwall foreman insulin use: without longwall foreman use Diabetes mellitus complication status: without complication Qualified Code(s): E11.9 - Type 2 diabetes mellitus without complications (8) Polyp of duodenum Current Visit: Yes Status: Acute Assessment and plan: Patient had 2 gastric polyps and a large duodenal polyp seen on EGD yesterday. This was resected been clipped. Likely source of patient's chronic anemia. Polyp was sent to the pathology Department for analysis. Plan for repeat upper endoscopy today to ensure complete resection and hemostasis and patient will also undergo colonoscopy today for complete evaluation. - Time Spent With Patient Total time spent is greater than 50% in coordination of care (as documented) at patient's floor/unit and/or counseling patient: - Subjective Interval history: Patient seen and examined at bedside. She reports left lower leg pain. She states it is intermittent and the pain medication helps somewhat but does not last very long. She reports his pain is in the back of her leg. Patient denies any blood in her stool. Patient denies any other evidence of active bleeding. - Constitutional Vitals: Temp Pulse Resp BP Pulse Ox 98.7 F 65 15 120/54 96 12/28/17 07:39 12/28/17 07:39 12/28/17 07:39 12/28/17 07:39 12/28/17 07:39 General appearance: Present: A&O X 3, pleasant, answers questions appropriately - Respiratory Respiratory exam: Present: CTAB. Absent: rales, rhonchi, wheezes - Cardiovascular Cardiovascular exam: Present: RRR. Absent: gallop, rubs, systolic murmur - GI/Abdominal GI/Abdominal exam: Present: normal bowel sounds, soft. Absent: distended, tenderness - Extremities Exam Extremities exam: Present: tenderness (Left leg), warm. Absent: pedal edema - Neurological Exam Neurological exam: Present: alert, oriented X3, no focal deficits Internal Medicine: Result - Labs CBC & Chem 7: 12/28/17 05:00 12/28/17 05:00 Labs: Short CBC 12/28/17 Range/Units 05:00 WBC 5.3 (4.3-11.1) K/mcL Hgb 9.3 L (11.5-15.4) g/dL Hct 30.7 L (35.3-44.9) % Plt Count 261 (140-400) K/mcL Neutrophils # 3.0 (1.6-8.9) K/mcL BMP 12/28/17 05:00 Sodium 139 Potassium 3.2 L Chloride 108 H Carbon Dioxide 25 BUN 6 L Creatinine 0.58 L Glucose 93 Calcium 9.2 Consult Discharge Plan - Plan Referrals: Will Veliz, [Primary Care Provider] - <Migue Enriquez - Last Filed: 12/28/17 14:56> Date of Encounter: 12/28/17 - Assessment and plan (1) Hypertension Current Visit: No Status: Chronic Qualifiers: Hypertension type: essential hypertension Qualified Code(s): I10 - Essential (primary) hypertension (2) Hypothyroidism Current Visit: No Status: Chronic Qualifiers: Hypothyroidism type: acquired Qualified Code(s): E03.9 - Hypothyroidism, unspecified (3) Anemia Current Visit: No Status: Suspected Qualifiers: Anemia type: iron deficiency Iron deficiency anemia type: chronic blood loss Qualified Code(s): D50.0 - Iron deficiency anemia secondary to blood loss (chronic) (4) DM type 2 (diabetes mellitus, type 2) Current Visit: No Status: Chronic Qualifiers: Diabetes mellitus care home insulin use: without longwall foreman use Diabetes mellitus complication status: without complication Qualified Code(s): E11.9 - Type 2 diabetes mellitus without complications (5) UTI (urinary tract infection) Current Visit: No Status: Acute Qualifiers: Urinary tract infection type: acute cystitis Hematuria presence: with hematuria Qualified Code(s): N30.01 - Acute cystitis with hematuria (6) Hx of deep venous thrombosis Current Visit: Yes Status: Chronic (7) Demand ischemia Current Visit: Yes Status: Resolved (8) Polyp of duodenum Current Visit: Yes Status: Acute - Time Spent With Patient Total time spent is greater than 50% in coordination of care (as documented) at patient's floor/unit and/or counseling patient: - Constitutional Vitals: Temp Pulse Resp BP Pulse Ox 99.3 F 81 18 169/72 95 12/28/17 13:29 12/28/17 13:29 12/28/17 13:29 12/28/17 13:29 12/28/17 13:29 Internal Medicine: Result - Labs CBC & Chem 7: 12/28/17 05:00 12/28/17 05:00 Labs: Short CBC 12/28/17 Range/Units 05:00 WBC 5.3 (4.3-11.1) K/mcL Hgb 9.3 L (11.5-15.4) g/dL Hct 30.7 L (35.3-44.9) % Plt Count 261 (140-400) K/mcL Neutrophils # 3.0 (1.6-8.9) K/mcL BMP 12/28/17 05:00 Sodium 139 Potassium 3.2 L Chloride 108 H Carbon Dioxide 25 BUN 6 L Creatinine 0.58 L Glucose 93 Calcium 9.2 - Attending Attestation I examined this patient and my medical decision-making was reviewed with the Resident Physician on 12/28/17. I agree with the documented findings, disposition and treatment plan as described except to the extent set forth below. Ms Stone is currently admitted for UTI and anemia. She remains moderate to high risk due to potential for worsening clinical status. Ms Stone had EGD yesterday and large polyp removed. Repeat endoscopy today. No fever or chills. No other issues. Exam alert Comfortable Mucus membranes dry Heart not tachy No wheeze I/P 1. UTI - completed abx 2. Anemia - repeat endoscopy today. Further diagnoses and plan as above.
[2017-12-28] MEDS ORDERED: *HR* Propofol 200 MG/20 ML VIAL IVP ONE (12:34)
--- NOTE | 2017-12-28 13:27 | Anesthesia Evaluation PreOp ---
Date of Encounter: 12/28/17 Time of Encounter: 13:25 - Past History Planned Operation: EGD/colonoscopy Cardiac History: CA (? demand ischemia this admission), HTN, Hyperlipidemia, Other (hx DVT 2016; multiple transfusions since starting anti-coagulation - currently Eliquis) Pulmonary History: COPD [employer] History: Other (anxiety/depression) Other Medical History: Renal (stones), Bleeding (2U PRBC's since admission), Diabetes Type II (oral medications only), Thyroid (cancer s/p resection), GERD ( multiple gastric/esophageal polyps discovered yesterday), Other Anesthesia History: No Prior Anesthetic Complications Alcohol Use: none Drug use: none Medications and Allergies Cholecalciferol (D-3) [Vitamin D] 1,000 unit PO DAILY 05/30/17 [History] Gabapentin [Neurontin] 800 mg PO TID 05/30/17 [History] Levothyroxine [Synthroid] 75 mcg PO DAILY 05/30/17 [History] Pioglitazone [Actos] 30 mg PO 0800 05/31/17 [History] Apixaban [Eliquis] 2.5 mg PO BID 06/08/17 [History] Ascorbic Acid [C-500] 500 mg PO DAILY #30 tablet 09/12/17 [Rx] Ferrous Sulfate 325 mg PO DAILY #30 tablet 09/12/17 [Rx] Melatonin/Pyridoxine HCl (B6) [Melatonin 5 mg Tablet] 10 mg PO HS PRN 12/23/17 [ History] Diltiazem CD (24hr) [Cardizem CD] 180 mg PO DAILY 12/24/17 [History] Furosemide [Lasix] 40 mg PO DAILY 12/24/17 [History] Multivit-Min/Iron/Folic/Lutein [Centrum Silver Women Tablet] 1 tab PO DAILY 08/12 [History] Non-Formulary Medication 1 - 2 pump TP AD 12/24/17 [History] Pantoprazole Sodium [Protonix] 40 mg PO DAILY 12/24/17 [History] Potassium Chloride [K-Tab ER] 20 meq PO DAILY 12/24/17 [History] Vit C/E/Zn/Coppr/Lutein/Zeaxan [Preservision Areds 2 Softgel] 1 cap PO DAILY 08/12 [History] 3 Allergy/AdvReac Type Severity Reaction Status Date / Time clarithromycin [From Biaxin] Allergy Hives Verified 12/24/17 09:51 Iodinated Contrast- Oral and Allergy Hives Verified 12/24/17 09:51 IV Dye [Iodinated Contrast Media - IV Dye] metoclopramide Allergy Difficulty Verified 12/24/17 09:51 Breathing Penicillins Allergy Hives Verified 12/24/17 09:51 phenazopyridine Allergy Rash Verified 12/24/17 09:51 [From Pyridium] Sulfa (Sulfonamide Allergy Hives Verified 12/24/17 09:51 Antibiotics) sulfamethoxazole Allergy Hives Verified 12/24/17 09:51 [From Bactrim] trimethoprim [From Bactrim] Allergy Hives Verified 12/24/17 09:51 - Meds/Allergy Pre-op Review Medications Reviewed: Yes Allergies Reviewed: Yes Beta Blockers on Current Med List: No Anesthesia Results - Labs 12/28/17 05:00 12/28/17 05:00 - Imaging EKG: report reviewed, image reviewed (SINUS RHYTHM LEFT ANTERIOR FASCICULAR BLOCK) Additional studies: 2016 TTE: Indications: Coronary artery disease Impressions: Sinus bradycardia, HR 40's. LVEF 60%. Normal left ventricular size and systolic function. There is evidence of mild diastolic dysfunction of the left ventricle. Mildly dilated RV with normal function. Mild aortic regurgitation. Moderate mitral regurgitation. Mild tricuspid regurgitation. Estimated RVSP was 44 mmHg. Mild pulmonary hypertension. The IVC is not dilated. Anesthesia Exam Last Vital Signs Temp 97.9 F 12/28/17 12:00 Pulse 65 12/28/17 12:00 Resp 18 12/28/17 12:00 BP 166/75 12/28/17 12:00 Pulse Ox 94 12/28/17 12:00 Weight: 79 kg NPO (# of Hours): > 8 hrs - HEENT Pupil (Motor): Pupils equal, EOMI Mallampati: III Teeth: Edentulous Oral Opening: Greater than 3 - AUTOMOBILE PARK[employer] LOC: Oriented [employer]OM[employer]BILE [employer]ARK[employer] Motor: Normal RUE, Normal LUE, Normal RLE, Normal LLE, Normal Face - Cardiac Rhythm: Regular Murmur: None - Pulmonary Breath Sounds: bilateral Clear Respiratory Effort: Symmetrical Anesthesia Assess/Plan ASA Score: 4 Modified Milan Scale for Level of Consciousness: Cooperative, oriented, and tranquil Anesthetic Plan: MAC Monitoring Plan: Standard Monitors Recovery Plan: PACU
--- NOTE | 2017-12-28 19:21 | Vascular/Endovasc Consult Note ---
Date of Encounter: 12/28/17 Time of Encounter: 17:20 Assessment and Plan (1) Hypercoagulable state Current Visit: Yes Status: Chronic The pathophysiology and natural history of venous thromboembolism was discussed the patient and all questions were answered. The patient is a history of multiple recurrent deep vein thrombosis reports history of pulmonary embolus as well. 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 At this time she has had significant anemia related to occult GI bleeding. Gastroenterology has recommended discontinuation of her anticoagulation for at least 2 weeks. Given this patient is at increased risk for venous thromboembolism. The patient states she does not wish to take Coumadin in the future. The risks benefits and alternatives of inferior vena cava filter placement were discussed with the patient and all questions were answered. The patient expressed understanding wishes to proceed. She has a contrast allergy and will be premedicated prior to the procedure. 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 Stone is a 86 year old female with history of recurrent deep vein thrombosis, diabetes, hyperlipidemia, hypertension, thyroid disease and cancer. The patient presented to the emergency room with anemia. Her hemoglobin was noted to be 6.3. The patient is chronically anticoagulated with Coumadin due to her hyper correctable state. She received packed red blood cells and gastroenterology was counseled. The patient underwent endoscopy was found to have multiple polyps. She is an avid large duodenal polyp that was thought to have bled. She underwent polypectomy. It was recommended that her and a coagulation beak discontinued for at least 2 weeks. Given her hypercoagulable state and history of multiple deep vein thrombotic events, vascular surgery was counseled for further evaluation and consideration for inferior vena cava filter placement. The patient denies chest pain or shortness of breath. Past Med Surg Social Fam HX - Past Medical History Medical history: cancer, DVT, diabetes, GERD, hyperlipidemia, hypertension, kidney stones, thyroid disease, other Additional medical history: hiatal hernia Psychiatric history: anxiety, depression - Past Surgical History Surgical History: appendectomy, cataract, hysterectomy, knee replacement, thyroidectomy, other Additional surgical history: bi-lat knee replacement. Exploratory kidney surgery - Social History Smoking Status: Never smoker Smokeless Tobacco Status: No Alcohol use: none Drug use: none - Family History Mother Living Status: Hx Family Endocrine Disorder: Yes Father Living Status: Hx Family Endocrine Disorder: Yes Medications and Allergies Cholecalciferol (D-3) [Vitamin D] 1,000 unit PO DAILY 05/30/17 [History] Gabapentin [Neurontin] 800 mg PO TID 05/30/17 [History] Levothyroxine [Synthroid] 75 mcg PO DAILY 05/30/17 [History] Pioglitazone [Actos] 30 mg PO 0800 05/31/17 [History] Apixaban [Eliquis] 2.5 mg PO BID 06/08/17 [History] Ascorbic Acid [C-500] 500 mg PO DAILY #30 tablet 09/12/17 [Rx] Ferrous Sulfate 325 mg PO DAILY #30 tablet 09/12/17 [Rx] Melatonin/Pyridoxine HCl (B6) [Melatonin 5 mg Tablet] 10 mg PO HS PRN 12/23/17 [ History] Diltiazem CD (24hr) [Cardizem CD] 180 mg PO DAILY 12/24/17 [History] Furosemide [Lasix] 40 mg PO DAILY 12/24/17 [History] Multivit-Min/Iron/Folic/Lutein [Centrum Silver Women Tablet] 1 tab PO DAILY 08/12 [History] Non-Formulary Medication 1 - 2 pump TP AD 12/24/17 [History] Pantoprazole Sodium [Protonix] 40 mg PO DAILY 12/24/17 [History] Potassium Chloride [K-Tab ER] 20 meq PO DAILY 12/24/17 [History] Vit C/E/Zn/Coppr/Lutein/Zeaxan [Preservision Areds 2 Softgel] 1 cap PO DAILY 08/12 [History] 3 Allergy/AdvReac Type Severity Reaction Status Date / Time clarithromycin [From Biaxin] Allergy Hives Verified 12/24/17 09:51 Iodinated Contrast- Oral and Allergy Hives Verified 12/24/17 09:51 IV Dye [Iodinated Contrast Media - IV Dye] metoclopramide Allergy Difficulty Verified 12/24/17 09:51 Breathing Penicillins Allergy Hives Verified 12/24/17 09:51 phenazopyridine Allergy Rash Verified 12/24/17 09:51 [From Pyridium] Sulfa (Sulfonamide Allergy Hives Verified 12/24/17 09:51 Antibiotics) sulfamethoxazole Allergy Hives Verified 12/24/17 09:51 [From Bactrim] trimethoprim [From Bactrim] Allergy Hives Verified 12/24/17 09:51 All Systems Review: The remainder of the systems were reviewed and are negative - Constitutional Constitutional: no chills, no fever(s) - Cardiovascular Cardiovascular: no chest pain at rest, no dyspnea at rest - Respiratory Respiratory: no cough - Neurological Neurological: no focal weakness - Hematological/Lymphatic Hematologic/Lymphatic: blood thinners Exam General: Present: Conversant, No Apparent Distress HEENT: Present: Atraumatic Neck: Absent: JVD, Lymphadenopathy Cardiac: Present: Reg Rate and Rhythm, Normal S1 and S2 Lungs: Present: Normal Breath Sounds, No Wheeze, Rales, Rhonchi Neuro: Present: Alert and responsive, No focal deficits noted, Motor nerves grossly intact, Sensory nerves grossly intact Abdomen: Present: Soft, Non-tender. Absent: Masses Vascular: Present: Normal capillary refill. Absent: Cyanosis, Edema Skin: Present: No rashes noted on visualized skin Consult Discharge Plan - Plan Referrals: Will Veliz DO [Primary Care Provider] -
[2017-12-28] MEDS: Melatonin 3 MG TABLET PO SCH (20:42)
[2017-12-28] MEDS: Iron Sucrose Complex 200 MG in 0.9 % Sodium Chloride 100 ML IVPB SCH (22:41)
[2017-12-29] MEDS: MethylPREDNISolone 40 MG/ML VIAL IVP SCH ×4 (00:05→19:54)
[2017-12-29 04:19] LABS: Basophils # 0.1 K/mcL (0.0-0.2); Basophils % 0.8 %; Eosinophils # 0.1 K/mcL (0.0-0.6); Eosinophils % 1.9 %; Hematocrit 34.3 % (35.3-44.9); Hemoglobin 10.2 g/dL (11.5-15.4); Immature Granulocytes % 0.9 % (0-4); Lymphocytes # 0.6 K/mcL (0.6-4.6); Lymphocytes % 8.4 %; Mean Corpuscular HGB Conc 29.7 g/dL (31.6-35.5); Mean Corpuscular Hemoglobin 27.6 pg (28.0-33.3); Mean Platelet Volume 9.9 fL (9.4-12.4); Monocytes # 0.2 K/mcL (0.0-1.3); Monocytes % 3.2 %; Neutrophils # 6.3 K/mcL (1.6-8.9); Platelet Count 305 K/mcL (140-400); Red Blood Count 3.69 M/mcL (3.82-4.97); Red Cell Distribution Width 15.7 % (11.5-14.5); Segmented Neutrophils % 84.8 %
[2017-12-29 04:39] LABS: BUN/Creatinine Ratio 12 (6-26); Blood Urea Nitrogen 9 mg/dL (8-23); Calcium 9.2 mg/dL (8.6-10.3); Carbon Dioxide 24 mEq/L (23-29); Chloride 107 mEq/L (98-107); Glucose 132 mg/dL (70-105); Osmolality,Calculated 291 (280-300); Sodium 140 mEq/L (136-145); eGFR For African Americans > 60 (> 60); eGFR For Non-African Americans > 60 (> 60)
[2017-12-29] MEDS ORDERED: 0.9 % Sodium Chloride 1,000 ML ONE ×2 (08:14→08:41)
--- NOTE | 2017-12-29 08:14 | Pre-Sedation Evaluation ---
Pre-sedation evaluation - Pre-sedation checklist Date of procedure: 12/29/17 Procedure: IVC Filter Placement Recent Vitals: Last Vital Signs Temp 98.4 F 12/29/17 07:00 Pulse 94 12/29/17 07:00 Resp 18 12/29/17 07:00 BP 156/78 12/29/17 07:00 Pulse Ox 95 12/29/17 07:00 H&P (including ROS) documented in medical record: Yes Previous reaction to sedatives/anesthetics: No Dietary Status: NPO after Midnight Dentition: dentures removed ASA Classification *see protocol: CLASS III-Severe systemic disease Plan of Care: Pt appropriate candidate for procedure/moderate/conscious sedation , Risks/benefits of procedure/sedation discussed w/ patient/family
[2017-12-29] MEDS ORDERED: Heparin 1,000 UNITS/500 mL 500 ML ONE (08:41)
[2017-12-29] MEDS ORDERED: *HR* Heparin 10,000 UNIT/10 ML VIAL ONE (08:41)
[2017-12-29] MEDS ORDERED: ISOVUE-250 150 ML INFUS..BTL IV ONE (08:41)
--- NOTE | 2017-12-29 08:57 | Invasive Diagnostic Lab Proc ---
Name: Filomena Stone Date of Study: 12/29/2017 Date: 1930 Ht: 165.0 in Medical Record#: [id number] Age: 86 Wt: 78 lb Gender: Female BSA: 1.85 Order #: [id number] BMI: 28.65 Physicians Performing MD: Amor Eubanks MD Referring MD: Referring MD: Staff Name Position Time In Verito Kim RN Transportation Aide Nhi King RT (R) Scrub Krystina Mcdermott RT (R) Monitor Indications DVT, Bilateral Procedures Performed IVC FILTER PLACEMENT Pre-Procedure Checklist Informed consent is complete signed and on chart. H&P is on chart. ID band is on and ID verified with patient. Patient NPO for procedure The procedure was described for the patient and questions were answered. Blood Pressure: 156/78 ECG is on chart. Rhythm: NSR Plan of Care Patient will tolerate the procedure without complications. Adequate level of comfort will be maintained. Hemodynamics will remain stable Patient will recover from procedure without complications. Respiratory function will be maintained. Cardiac rhythm will remain stable. Patient temperature will be maintained. Patient and/or family have verbalized understanding of the procedure. Patient Education Chief Complaint/Reason for Test: IVC filter Developmental Category: Geriatric (65+ years) Learning Barriers: None Education Needs: Procedure Education Method: Verbal Information Taught: IVC filter Educational Evaluation: Able to repeat information Intravenous Access Time IV Size Location DC'd Fluid/Drip Rate Units RN 08:00 20g 1 1/4" Patent On Arrival Rt Hand 08:00 20g 1 1/4" Patent On Arrival Lt Antecubital 0.9NaCl ml/hr Allergies PCN,SULFA,REGLAN,IVP DYE,SEPTRAA,BACTRIM,PYRIDIUM, Penicillins trimethoprim clarithromycin Contrast Media, Iodine Related Phenazopyridine Vital Signs Time BP Systolic BP Diastolic HR O2 Sats ASA 07:46 AM 156 78 94 95 08:21 AM 08:21 AM 08:48 AM 149 74 95 96 08:15 AM 167 90 98 93 08:20 AM 165 86 92 95 08:25 AM 160 81 93 99 08:30 AM 166 81 96 97 08:35 AM 158 78 86 96 08:40 AM 154 81 84 95 08:45 AM 149 74 83 94 Procedure Medications Time Medication Dose Units Method Route 08:21 AM Oxygen 2 L/min nasal cannula 08:21 AM Benadryl 50 mg Intravenous 08:28 AM Lidocaine 2% 8 ml Subcutaneous ASA Classification: CLASS II- Mild systemic disease (i.e. well-controlled diabetes, hypertension, asthma, cigarette smoking) Devon Score Preprocedure Postprocedure Activity 2- Moves 4 extremities sustained head lift Activity 2- Moves 4 extremities sustained head lift Circulation 2- SBP +/= 20 points of pre-anesthetic level Circulation 2- SBP +/= 20 points of pre-anesthetic level Consciousness 2- Awake and alert oriented x 3 Consciousness 2- Awake and alert oriented x 3 O2 Saturation 2- Able to maintain O2 satruation of 92% on room air O2 Saturation 2- Able to maintain O2 satruation of 92% on room air Respiratory 2- Able to deep breathe and cough well Respiratory 2- Able to deep breathe and cough well Total Score 10 Total Score 10 Contrast: Isovue 250- 150ml Contrast Amount: 10 ml Fluoro Dose: 65 mGy Procedure Log Time Note Entered By 08:19 AM Pt arrived to finishing lab technician 1 at 08:19 [email or web address] 08:20 AM Verito Kim RN Position: Transportation Aide Time in: 08:19 [email or web address] 08:20 AM Nhi King RT (R) Position: Scrub Time in: 08:20 [email or web address] 08:20 AM Krystina Mcdermott RT (R) Position: Monitor Time in: 08:20 [email or web address] 08:20 AM Case delayed: No [email or web address] 08:20 AM Hair removed from procedure site in holding area using clippers. Bilateral groin prepped with Chloraprep by Krystina Mcdermott RT (R), then patient was draped. Skin intact. [email or web address] 08:20 AM Physician arrived 08:20 [email or web address] 08:20 AM ASA Class CLASS II- Mild systemic disease (i.e. well-controlled diabetes, hypertension, asthma, cigarette smoking) [email or web address] 08:20 AM Ruslan and mechelle completed [email or web address] 08:20 AM Sign in performed according to hospital policy. [email or web address] 08:20 AM Procedure start 08:20 [email or web address] 08:21 AM 08:21 Oxygen at 2 L/min per nasal cannula by Verito Kim RN [email or web address] 08:21 AM 08:21 Benadryl 50 mg Intravenous Given by Verito Kim RN [email or web address] 08:21 AM Time: 08:21 Is patient comfortable and pain free?: Yes [email or web address] 08:21 AM Time: 08:21LOC: 4 = Oriented but drowsy [email or web address] 08:25 AM Patient charges- Angio tray pack, Pulse Oximetry and ACIST tubing and transducer [email or web address] 08:26 AM Time out perfomed [email or web address] 08:26 AM Ultrasound, Sonosite, utilized to obtain vascular access [email or web address] 08:28 AM Access obtain and IVC Filter sheath inserted Rt Femoral vein. [email or web address] 08:27 AM 08:28 8 ml Lidocaine 2% to right groin Subcutaneous Given By Amor Eubanks MD [email or web address] 08:30 AM Inferiorvenacavagram performed 5 mls of contrast. [email or web address] 08:31 AM IVC Filter inserted into the inferior vena cava [email or web address] 08:31 AM IVC Filter deployed into the inferior vena cava [email or web address] 08:31 AM Inferiorvenacavagram performed 5 mls contrast. [email or web address] 08:32 AM Procedure completed at 08:32 [email or web address] 08:32 AM Sign Out completed: Radiation Dose 65.09 mGy Fluoro Time: 0.5 minutes. Isovue 250- 150ml contrast 10 ml given by Amor Eubanks MD. Complications: None. Confirmed administered medications:Yes [email or web address] 08:33 AM Isovue 250- 150ml,1 bottle(s) used. [email or web address] 08:33 AM Post Blood Pressure: 166/81 [email or web address] 08:33 AM Post EKG: NSR [email or web address] 08:33 AM 08:33 Post Pulses: Bilateral DP & PT 1+. [email or web address] 08:33 AM Information taught: IVC filter [email or web address] 08:33 AM Education needs: Procedure and Plan of Care [email or web address] 08:33 AM Learning barriers: None [email or web address] 08:33 AM Education methods: Verbal [email or web address] 08:33 AM Education evaluation: Able to repeat information [email or web address] 08:33 AM Patient pain level 0/10 [email or web address] 08:33 AM Delay to floor: No [email or web address] 08:34 AM Complications: None [email or web address] 08:34 AM Fluoro Time: 0.5 minutes [email or web address] 08:34 AM Family placed in not avilable. [email or web address] 08:34 AM Isovue 250- 150ml contrast 10 ml given by Amor Eubanks MD [email or web address] 08:34 AM Radiation Dose 65.09 mGy [email or web address] 08:36 AM Time: 08:21LOC: 4 = Oriented but drowsy [email or web address] 08:36 AM Time: 08:21 Is patient comfortable and pain free?: Yes [email or web address] 08:41 AM Report given to Janice JAIME. Pt taken to [facility], Room # 34 08:41 [email or web address] 08:44 AM Site status No bleeding/hematoma - Rt Groin as reported by Nhi King RT (R) at 08:44 [email or web address] 08:44 AM Opsite applied [email or web address] 08:45 AM Patient out of room 08:45 [email or web address] 08:31 AM Recorded Pressure: Ao, HR=93, Condition=Condition 1 (Aorta) Ao 0/-1/0 08:35 AM HR=86 bpm, GRWT=601/78 mmhg, SpO2=96.0 %, Comment=NSR 08:40 AM HR=84 bpm, MIRB=909/81 mmhg, SpO2=95.0 %, Comment=NSR 08:45 AM HR=83 bpm, NPAM=805/74 mmhg, SpO2=94 % 08:14 AM PVIStat 08:14 AM Vitals capture started with the following parameters, Patient=Adult, Interval=5 min, Initial Vcfdrjqo=141 mmHg, Deflation Rate=3 mmHg, Cuff placed on Right Arm 08:15 AM HR=98 bpm, JLOR=823/90 mmhg, SpO2=93.0 %, Comment=NSR 08:20 AM HR=92 bpm, QSTL=947/86 mmhg, SpO2=95.0 %, Comment=NSR 08:22 AM Reference ECG taken 08:23 AM Pressure channel 1 zeroed. 08:25 AM HR=93 bpm, YMAY=640/81 mmhg, SpO2=99.0 %, Comment=NSR 08:30 AM HR=96 bpm, KTFB=764/81 mmhg, SpO2=97.0 %, Comment=NSR 08:30 AM Recorded Pressure: Ao, HR=97, Condition=Condition 1 (Aorta) Ao 0/-1/0 Hemodynamic Results Site Systolic Diastolic Mean Location Timing Ao 0 -1 0 Ao 0 -1 0 Post Procedure Information Blood Pressure: 166/81 mmHg Rhythm: NSR Site Checks Time Location Status Staff Sheath In? Note 8:44:00 AM Rt Groin No bleeding/hematoma Nhi King RT (R) Pulses Time Site Pre Procedure Post Procedure Note 12/29/2017 8:19:00 AM Bilateral DP & PT 1+ 8:33:00 AM Bilateral DP & PT 1+ Updated by Krystina Mcdermott RT(R) on 12/29/2017 8:49:06 AM electronically signed on 12/29/2017 8:49:37 AM with status of Final
[2017-12-29] MEDS: *HR* Pioglitazone 30 MG TABLET PO SCH (10:37)
[2017-12-29] MEDS: Diltiazem CD (24hr) 180 MG CAPSULE PO SCH (10:37)
[2017-12-29] MEDS: Multivit/Ca/Min/Fe/FA 1 TAB TABLET PO SCH (10:37)
[2017-12-29] MEDS: Gabapentin 400 MG CAPSULE PO SCH ×3 (10:38→20:03)
[2017-12-29] MEDS: Ascorbic Acid 500 MG TABLET PO SCH (10:38)
[2017-12-29] MEDS: Furosemide 40 MG TABLET PO SCH (12:26)
--- NOTE | 2017-12-29 14:47 | Internal Med Progress Note ---
<Ludwin Ace - Last Filed: 12/29/17 14:43> Date of Encounter: 12/29/17 Time of Encounter: 14:43 - Assessment and plan (1) UTI (urinary tract infection) Current Visit: No Status: Acute Assessment and plan: Culture shows mixed bacteria, sample not suitable for culture. She reports dysuria on presentation but this is resolved Completed 4 days of Rocephin Qualifiers: Urinary tract infection type: acute cystitis Hematuria presence: with hematuria Qualified Code(s): N30.01 - Acute cystitis with hematuria (2) Anemia Current Visit: No Status: Suspected Assessment and plan: Iron deficiency, Most likely due to occult bleeding of duodenal polyp. Status post transfusion of 2 units this hospitalization, hemoglobin stable today at 9.3 Completed IV iron infusions x2 doses Continue monitor hemoglobin and transfuse as necessary Colonoscopy revealed 2 small nonbleeding polyps that were removed. Qualifiers: Anemia type: iron deficiency Iron deficiency anemia type: chronic blood loss Qualified Code(s): D50.0 - Iron deficiency anemia secondary to blood loss (chronic) (3) Hx of deep venous thrombosis Current Visit: Yes Status: Chronic Assessment and plan: Pt has been on chronic anticoagulation which is currently on hold due to concerns for bleeding. Lower extremity Dopplers 2 were negative for DVT Given her large polyp in concern for rebleeding anticoagulation is contraindicated therefore discussed surgery was consulted and patient underwent IVC filter today. She tolerated this well. (4) Demand ischemia Current Visit: Yes Status: Resolved Assessment and plan: Troponin elevated but appears to be related to demand. Patient has remained asymptomatic. Continue monitor for chest pain (5) Hypertension Current Visit: No Status: Chronic Assessment and plan: Continue current medications. Blood pressure under good control today. Qualifiers: Hypertension type: essential hypertension Qualified Code(s): I10 - Essential (primary) hypertension (6) Hypothyroidism Current Visit: No Status: Chronic Assessment and plan: Continue current medications. Qualifiers: Hypothyroidism type: acquired Qualified Code(s): E03.9 - Hypothyroidism, unspecified (7) DM type 2 (diabetes mellitus, type 2) Current Visit: No Status: Chronic Assessment and plan: Blood sugars have been under good control, continue Actos Qualifiers: Diabetes mellitus intermediate card tender insulin use: without intermediate use Diabetes mellitus complication status: without complication Qualified Code(s): E11.9 - Type 2 diabetes mellitus without complications (8) Polyp of duodenum Current Visit: Yes Status: Acute Assessment and plan: Patient had 2 gastric polyps and a large duodenal polyp seen on EGD 2 days ago. This was resected been clipped. Likely source of patient's chronic anemia. Polyp was sent to the pathology Department for analysis. Repeat upper endoscopy showed adequate hemostasis. - Time Spent With Patient Total time spent is greater than 50% in coordination of care (as documented) at patient's floor/unit and/or counseling patient: - Subjective Interval history: Patient seen and examined at bedside. Patient states that she feels pretty good today. She reports the pain in her left lower leg has resolved. She tolerated her IVC filter placement well. She currently lives alone with assistance from her daughter who lives nearby and she does not feel safe going home today. - Constitutional Vitals: Temp Pulse Resp BP Pulse Ox 98.4 F 93 16 133/97 93 12/29/17 07:00 12/29/17 12:43 12/29/17 12:43 12/29/17 12:43 12/29/17 12:43 General appearance: Present: A&O X 3, pleasant, answers questions appropriately - Respiratory Respiratory exam: Present: CTAB. Absent: rales, rhonchi, wheezes - Cardiovascular Cardiovascular exam: Present: RRR. Absent: gallop, rubs, systolic murmur - GI/Abdominal GI/Abdominal exam: Present: soft. Absent: tenderness - Extremities Exam Extremities exam: Present: pedal edema (trace) - Neurological Exam Neurological exam: Present: alert, CN II-XII intact, oriented X3, no focal deficits Internal Medicine: Result - Labs CBC & Chem 7: 12/29/17 03:20 12/29/17 03:20 Labs: Short CBC 12/29/17 Range/Units 03:20 WBC 7.5 (4.3-11.1) K/mcL Hgb 10.2 L (11.5-15.4) g/dL Hct 34.3 L (35.3-44.9) % Plt Count 305 (140-400) K/mcL Neutrophils # 6.3 (1.6-8.9) K/mcL BMP 12/29/17 03:20 Sodium 140 Potassium 4.0 Chloride 107 Carbon Dioxide 24 BUN 9 Creatinine 0.77 Glucose 132 H Calcium 9.2 - VTE Documentation of Mechanical Device: Intermittent pneumatic compression device Consult Discharge Plan - Plan Referrals: Will Veliz, [Primary Care Provider] - <Migue Enriquez - Last Filed: 12/29/17 17:45> Date of Encounter: 12/29/17 - Assessment and plan (1) Hypertension Current Visit: No Status: Chronic Qualifiers: Hypertension type: essential hypertension Qualified Code(s): I10 - Essential (primary) hypertension (2) Hypothyroidism Current Visit: No Status: Chronic Qualifiers: Hypothyroidism type: acquired Qualified Code(s): E03.9 - Hypothyroidism, unspecified (3) Anemia Current Visit: No Status: Suspected Qualifiers: Anemia type: iron deficiency Iron deficiency anemia type: chronic blood loss Qualified Code(s): D50.0 - Iron deficiency anemia secondary to blood loss (chronic) (4) DM type 2 (diabetes mellitus, type 2) Current Visit: No Status: Chronic Qualifiers: Diabetes mellitus intermediate card tender insulin use: without intermediate card tender use Diabetes mellitus complication status: without complication Qualified Code(s): E11.9 - Type 2 diabetes mellitus without complications (5) UTI (urinary tract infection) Current Visit: No Status: Acute Qualifiers: Urinary tract infection type: acute cystitis Hematuria presence: with hematuria Qualified Code(s): N30.01 - Acute cystitis with hematuria (6) Hx of deep venous thrombosis Current Visit: Yes Status: Chronic (7) Demand ischemia Current Visit: Yes Status: Resolved (8) Polyp of duodenum Current Visit: Yes Status: Acute - Time Spent With Patient Total time spent is greater than 50% in coordination of care (as documented) at patient's floor/unit and/or counseling patient: - Constitutional Vitals: Temp Pulse Resp BP Pulse Ox 98 F 74 17 133/97 94 12/29/17 16:00 12/29/17 16:00 12/29/17 16:00 12/29/17 12:43 12/29/17 16:00 Internal Medicine: Result - Labs CBC & Chem 7: 12/29/17 03:20 12/29/17 03:20 Labs: Short CBC 12/29/17 Range/Units 03:20 WBC 7.5 (4.3-11.1) K/mcL Hgb 10.2 L (11.5-15.4) g/dL Hct 34.3 L (35.3-44.9) % Plt Count 305 (140-400) K/mcL Neutrophils # 6.3 (1.6-8.9) K/mcL BMP 12/29/17 03:20 Sodium 140 Potassium 4.0 Chloride 107 Carbon Dioxide 24 BUN 9 Creatinine 0.77 Glucose 132 H Calcium 9.2 - Attending Attestation I examined this patient and my medical decision-making was reviewed with the Resident Physician on 12/29/17. I agree with the documented findings, disposition and treatment plan as described except to the extent set forth below. Ms Stone is currently admitted for UTI and anemia. She was found to have a large duodenal polyp. She is currently off anticoagulation and IVC filter placed today. She remains moderate to high risk due to potential for worsening clinical status. Ms Stone had IVC filter today. No fever or chills. Tired after procedure. No CP or SOB. No other acute issues. Exam Alert Comfortable Mucus membranes dry Heart reg No wheeze Abd soft I/P 1. UTI - completed abx 2. DVT history - IVC filter today Further diagnoses and plan as above.
[2017-12-29] MEDS: Melatonin 3 MG TABLET PO SCH (20:03)
[2017-12-30 05:49] LABS: BUN/Creatinine Ratio 32 (6-26); Blood Urea Nitrogen 23 mg/dL (8-23); Calcium 9.7 mg/dL (8.6-10.3); Carbon Dioxide 22 mEq/L (23-29); Chloride 107 mEq/L (98-107); Glucose 210 mg/dL (70-105); Osmolality,Calculated 294 (280-300); Potassium 4.5 mEq/L (3.5-5.1); Sodium 137 mEq/L (136-145); eGFR For African Americans > 60 (> 60); eGFR For Non-African Americans > 60 (> 60)
[2017-12-30 05:50] LABS: Basophils % 0.1 %; Hematocrit 33.2 % (35.3-44.9); Immature Granulocytes % 0.9 % (0-4); Lymphocytes # 0.7 K/mcL (0.6-4.6); Lymphocytes % 8.8 %; Mean Corpuscular HGB Conc 30.1 g/dL (31.6-35.5); Mean Corpuscular Hemoglobin 27.9 pg (28.0-33.3); Mean Corpuscular Volume 92.5 fL (83.0-100.0); Mean Platelet Volume 9.8 fL (9.4-12.4); Monocytes # 0.3 K/mcL (0.0-1.3); Monocytes % 3.6 %; Neutrophils # 6.9 K/mcL (1.6-8.9); Platelet Count 308 K/mcL (140-400); Red Blood Count 3.59 M/mcL (3.82-4.97); Red Cell Distribution Width 15.2 % (11.5-14.5); Segmented Neutrophils % 86.6 %
[2017-12-30 07:48] VITALS: BP 145/64
--- NOTE | 2017-12-30 08:21 | Vascular/[facility] Progress Note ---
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 She recently had a gastric intestinal bleed. Anticoagulation has been the held. She underwent inferior vena cava filter placement yesterday. She states that she no longer wishes to take oral anticoagulation due to her bleeding risk. Her filter has been placed for permanent placement. She may be discharged from a vascular surgery standpoint. (2) Hypertension Current Visit: No Status: Chronic Qualifiers: Hypertension type: essential hypertension Qualified Code(s): I10 - Essential (primary) hypertension (3) Anemia Current Visit: No Status: Suspected Qualifiers: Anemia type: iron deficiency Iron deficiency anemia type: chronic blood loss Qualified Code(s): D50.0 - Iron deficiency anemia secondary to blood loss (chronic) (4) DM type 2 (diabetes mellitus, type 2) Current Visit: No Status: Chronic Qualifiers: Diabetes mellitus long term care pharmacist insulin use: without long term care pharmacist use Diabetes mellitus complication status: without complication Qualified Code(s): E11.9 - Type 2 diabetes mellitus without complications - Subjective Interval history: The patient is alert and comfortable. She denies any abdominal flank or extremity pain. She denies chest or shortness of breath. No acute events overnight. Vital Signs, Last 4 Hours Temp Pulse Resp BP Pulse Ox 12/30/17 07:00 97.8 F 56 18 145/64 97 - Physical Examination General: Present: Conversant, No Apparent Distress HEENT: Present: Pupils equal Cardiac: Present: Normal S1 and S2 Lungs: Present: Normal Breath Sounds Neuro: Present: Alert and responsive, No focal deficits noted Vascular: Present: Normal capillary refill, Pulse, normal, Surgical incisions ( No hematoma). Absent: Cyanosis, Edema Abdomen: Present: Soft, Non-tender Skin: Present: No rashes noted on visualized skin - VTE Documentation of Mechanical Device: Intermittent pneumatic compression device Results 12/30/17 05:16 12/30/17 05:16 Lab Results, Last 24 hours 12/30/17 12/30/17 05:16 05:16 WBC 8.0 Hgb 10.0 L Hct 33.2 L Plt Count 308 Sodium 137 Potassium 4.5 Chloride 107 Carbon Dioxide 22 L BUN 23 Creatinine 0.73 Glucose 210 H Calcium 9.7 Consult Discharge Plan - Plan Referrals: Will Veliz DO [Primary Care Provider] -
[2017-12-30] MEDS: Ascorbic Acid 500 MG TABLET PO SCH (09:00)
[2017-12-30] MEDS: Diltiazem CD (24hr) 180 MG CAPSULE PO SCH (09:00)
[2017-12-30] MEDS: *HR* Pioglitazone 30 MG TABLET PO SCH (09:00)
[2017-12-30] MEDS: Furosemide 40 MG TABLET PO SCH (09:00)
[2017-12-30] MEDS: Multivit/Ca/Min/Fe/FA 1 TAB TABLET PO SCH (09:01)
[2017-12-30] MEDS: Gabapentin 400 MG CAPSULE PO SCH (09:01)
--- NOTE | 2017-12-30 09:58 | Discharge Summary ---
<Ludwin Ace - Last Filed: 12/30/17 09:56> - NOTES TO OUTPATIENT PROVIDER Notes to Outpatient Provider: Due to concerns for duodenal polyp with bleeding, have discontinued anticoagulation and placed IVC filter, will set up outpatient follow up with GI due to multiple polyps with path showing tubular adenomas Orders not resulted at time of discharge: Pending orders 12/31/17 04:00 Basic Metabolic Panel AM 0400 Complete Blood Count [HEME] AM 0400 01/01/18 04:00 Basic Metabolic Panel AM 0400 Complete Blood Count [HEME] AM 0400 Date of Encounter: 12/30/17 Time of Encounter: 09:57 - Discharge Diagnosis (1) Polyp of duodenum Priority: Primary Status: Resolved (2) UTI (urinary tract infection) Priority: Primary Status: Resolved Qualifiers: Urinary tract infection type: acute cystitis Hematuria presence: with hematuria Qualified Code(s): N30.01 - Acute cystitis with hematuria (3) Anemia Priority: Primary Status: Chronic Qualifiers: Anemia type: iron deficiency Iron deficiency anemia type: chronic blood loss Qualified Code(s): D50.0 - Iron deficiency anemia secondary to blood loss (chronic) (4) Hx of deep venous thrombosis Priority: Secondary Status: Chronic (5) Demand ischemia Priority: Secondary Status: Resolved (6) Hypertension Priority: Secondary Status: Chronic Qualifiers: Hypertension type: essential hypertension Qualified Code(s): I10 - Essential (primary) hypertension (7) Hypothyroidism Priority: Secondary Status: Chronic Qualifiers: Hypothyroidism type: acquired Qualified Code(s): E03.9 - Hypothyroidism, unspecified (8) DM type 2 (diabetes mellitus, type 2) Priority: Secondary Status: Chronic Qualifiers: Diabetes mellitus prison insulin use: without prison use Diabetes mellitus complication status: without complication Qualified Code(s): E11.9 - Type 2 diabetes mellitus without complications Hospital course: Ms. Stone is a 87 year old female who was initially admitted for dysuria, fever, chills. She is found to have a UTI and was treated with 4 days of Rocephin. Upon arrival she was also found to be anemic while on Eliquis. GI consultation was obtained and the patient underwent upper and lower endoscopy. Upper endoscopy revealed a large duodenal polyp that was bleeding, likely her source of acute blood loss anemia. This was removed entirely and clips were placed. 2 small polyps were also found in the colon that were removed successfully. Pathology revealed tubular adenomas. Given concern for recurrent bleeding given her large polyp discussed with the patient long-term anticoagulation status and the patient to go back on anticoagulation. Given her history of recurrent DVTs vascular surgery was consulted and an IVC filter was placed. Patient's hemoglobin had remained stable through her hospitalization after initial transfusion on admission. Patient will be discharged home in stable condition. Discharge discussed with: patient, nurse - Time Spent with Patient Total time spent providing and/or coordinating discharge services: - Discharge Medications Home Medications: Cholecalciferol (D-3) [Vitamin D] 1,000 unit PO DAILY 05/30/17 [History] Gabapentin [Neurontin] 800 mg PO TID 05/30/17 [History] Levothyroxine [Synthroid] 75 mcg PO DAILY 05/30/17 [History] Pioglitazone [Actos] 30 mg PO 0800 05/31/17 [History] Ascorbic Acid [C-500] 500 mg PO DAILY #30 tablet 09/12/17 [Rx] Ferrous Sulfate 325 mg PO DAILY #30 tablet 09/12/17 [Rx] Melatonin/Pyridoxine HCl (B6) [Melatonin 5 mg Tablet] 10 mg PO HS PRN 12/23/17 [ History] Diltiazem CD (24hr) [Cardizem CD] 180 mg PO DAILY 12/24/17 [History] Furosemide [Lasix] 40 mg PO DAILY 12/24/17 [History] Multivit-Min/Iron/Folic/Lutein [Centrum Silver Women Tablet] 1 tab PO DAILY 08/12 [History] Non-Formulary Medication 1 - 2 pump TP AD 12/24/17 [History] Potassium Chloride [K-Tab ER] 20 meq PO DAILY 12/24/17 [History] Vit C/E/Zn/Coppr/Lutein/Zeaxan [Preservision Areds 2 Softgel] 1 cap PO DAILY 08/12 [History] Omeprazole [PriLOSEC] 20 mg PO BIDAC capsule. 12/30/17 [Rx] Simvastatin [Zocor] 40 mg PO HS tablet 12/30/17 [Rx] Allergies/Adverse Reactions: 3 Allergy/AdvReac Type Severity Reaction Status Date / Time clarithromycin [From Biaxin] Allergy Hives Verified 12/24/17 09:51 Iodinated Contrast- Oral and Allergy Hives Verified 12/24/17 09:51 IV Dye [Iodinated Contrast Media - IV Dye] metoclopramide Allergy Difficulty Verified 12/24/17 09:51 Breathing Penicillins Allergy Hives Verified 12/24/17 09:51 phenazopyridine Allergy Rash Verified 12/24/17 09:51 [From Pyridium] Sulfa (Sulfonamide Allergy Hives Verified 12/24/17 09:51 Antibiotics) sulfamethoxazole Allergy Hives Verified 12/24/17 09:51 [From Bactrim] trimethoprim [From Bactrim] Allergy Hives Verified 12/24/17 09:51 Date of admission: 12/23/17 22:52 Primary care physician: Will Veliz DO Consults: 12/24/17 11:19 Consult to Gastroenterology [CONS] Routine Consulting Provider: G[facility]enter[facility] Reason for Consult: Anemia on Eliquis. Time Notified: 11:20 Call Completed: Yes 12/28/17 16:01 Consult to Vascular Surgery [CONS] Routine Consulting Provider: V[facility] Reason for Consult: Need filter Time Notified: 15:30 Call Completed: Yes Discharging clinician: Ludwin Ace Anticipated date of discharge: 12/30/17 - Constitutional Vitals: Temp Pulse Resp BP Pulse Ox 97.8 F 56 18 145/64 97 12/30/17 07:00 12/30/17 07:00 12/30/17 07:00 12/30/17 07:00 12/30/17 07:00 General appearance: Present: A&O X 3, pleasant, answers questions appropriately - Respiratory Respiratory exam: Present: CTAB. Absent: rales, rhonchi, wheezes - Cardiovascular Cardiovascular exam: Present: irregular rhythm. Absent: gallop, rubs, systolic murmur, tachycardia - GI/Abdominal GI/Abdominal exam: Present: normal bowel sounds, soft. Absent: distended, tenderness - Extremities Exam Extremities exam: Present: pedal edema (trace), warm. Absent: tenderness - Neurological Exam Neurological exam: Present: alert, oriented X3, no focal deficits - Patient Status Disposition: Home, Self-Care Condition: Good Functional capacity at discharge: uses cane/walker Overall status at discharge: patient is progressing back to baseline - Discharge Instructions Follow Up With: Will Veliz DO [Primary Care Provider] - (1 week) Dionicio Proctor MD [Partnered Physician] - (2-4 weeks) Additional Instructions: Please follow-up with your primary care physician as scheduled. Please resume your home medications other than Eliquis. Do not take Eliquis any further. Please follow up with gastroenterology as scheduled. Please return for any new or worsening symptoms. - Diet and Activity Activity: increase activity as tolerated Diet: advance to your usual diet - VTE Documentation of Mechanical Device: Intermittent pneumatic compression device <Julia Llamas - Last Filed: 12/30/17 10:35> Orders not resulted at time of discharge: Pending orders 12/31/17 04:00 Basic Metabolic Panel AM 0400 Complete Blood Count [HEME] AM 0400 01/01/18 04:00 Basic Metabolic Panel AM 0400 Complete Blood Count [HEME] AM 0400 Date of Encounter: 12/30/17 Hospital course: Ms. Stone is a 87 year old female - Time Spent with Patient Total time spent providing and/or coordinating discharge services: Greater than 30 minutes Date of admission: 12/23/17 22:52 Primary care physician: Will Veliz DO Consults: 12/24/17 11:19 Consult to Gastroenterology [CONS] Routine Consulting Provider: [facility]enter[facility] [place] Reason for Consult: Anemia on Eliquis. Time Notified: 11:20 Call Completed: Yes 12/28/17 16:01 Consult to Vascular Surgery [CONS] Routine Consulting Provider: V[facility] Surgery [facility] Reason for Consult: Need filter Time Notified: 15:30 Call Completed: Yes - Constitutional Vitals: Temp Pulse Resp BP Pulse Ox 97.8 F 56 18 145/64 97 12/30/17 07:00 12/30/17 07:00 12/30/17 07:00 12/30/17 07:00 12/30/17 07:00 - Attending Attestation I saw and examined this patient independently, and my medical decision making was reviewed with the Resident on 2017. I agree with the documented findings, assessment and treatment plan as described in the progress note or discharge summary.
== END 2017-12-30 13:02 | disposition home or self-care (01) | DRG 357 ==
LOC: 2NENU → SUATTDRO 22:52
PROVIDERS: ADMIT Internal Medicine Hematology & Oncology; ATTEND Internal Medicine
PROC: ENDOEBX (2017-12-27 11:40)